=== PATIENT | female | born 1960 | race Caucasian/White ===

== ENCOUNTER 2016-05-04 08:34 | Day surgery (SDC) | payer MEDICARE, OTHER ==
[2016-05-01 15:17] VITALS: BMI 40.2
[~2016-05-04 08:34] MED LIST: LACTATED RINGERS 1,000 ML IV SCH
[2016-05-04 09:16] VITALS: TEMP 98
[2016-05-04] MEDS ORDERED: LIDOCAINE 1% 20 ML VIAL (10MG/ML) FOR IV START INTRADERMA ONE (09:22)
[2016-05-04] MEDS ORDERED: PROPOFOL 10 MG/ML 20 ML VIAL IV ONE (10:00)
[2016-05-04] MEDS ORDERED: LIDOCAINE 1% INJ 10MG/ML (20 ML MDV) ONE (10:00)
[2016-05-04] MEDS ORDERED: GLYCOPYRROLATE 0.2 MG/ML 2 ML VIAL ONE (10:00)
[2016-05-04] MEDS ORDERED: KETAMINE 10 MG/ML 20 ML VIAL ONE (10:00)
--- NOTE | 2016-05-04 10:17 | P.GSHP ---
History of Present Illness H&P Date: 05/04/16 Chief Complaint: GERD, morbid obesity This a 56-year-old female who presents today for EGD. Patient is undergoing workup for sleeve gastrectomy. She has a history of GERD and morbid obesity. Her BMI is 40. Past Medical History Past Medical History: Asthma, Fibromyalgia, GERD/Reflux, Musculoskeletal Disorder, Osteoarthritis (OA), Skin Disorder, Thyroid Disorder Additional Past Medical History / Comment(s): IBS, migraines, respiratory infection - on antibiotics, hiatal hernia, hx gout, rosacea, History of Any Multi-Drug Resistant Organisms: None Reported Past Surgical History: Adenoidectomy, Appendectomy, Bariatric Surgery, Cholecystectomy, Heart Catheterization, Orthopedic Surgery, Tonsillectomy, Tubal Ligation, Uterine Ablation Additional Past Surgical History / Comment(s): tendon/ligament repair in foot, lexie knee arthroscopy, lipoma out of rt. shoulder, lap band/later removed, thyroidectomy, rt hand surgery, Past Anesthesia/Blood Transfusion Reactions: Motion Sickness Past Psychological History: Anxiety, Bipolar, Depression Additional Psychological History / Comment(s): Major depressive disorder, suicide attempts x 4, Smoking Status: Never smoker Past Alcohol Use History: None Reported Past Drug Use History: None Reported - Past Family History Mother Family Medical History: Cancer Additional Family Medical History / Comment(s): Pancreatic Father Family Medical History: Cancer, Deep Vein Thrombosis (DVT), Pulmonary Embolus Additional Family Medical History / Comment(s): Prostate Medications and Allergies Home Medications Medication Instructions Recorded Confirmed Type Lansoprazole [Prevacid] 30 mg PO DAILY 09/25/15 05/04/16 History Levothyroxine Sodium [Synthroid] 25 mcg PO DAILY 09/25/15 05/04/16 History Sertraline [Zoloft] 100 mg PO HS 09/25/15 05/04/16 History carBAMazepine [TEGretol] 200 mg PO HS 09/25/15 05/04/16 History traZODone HCL [Desyrel] 200 mg PO HS 09/25/15 05/04/16 History Baclofen [Lioresal] 5 mg PO BID PRN 10/27/15 05/04/16 History Calcium Tablet 1,000 mg PO QAM 11/28/15 05/04/16 History Multivitamins, Thera [Multivitamin] 2 tab PO DAILY 11/28/15 05/04/16 History Temazepam [Restoril] 30 mg PO HS PRN 11/28/15 05/04/16 History traMADol HCL [Ultram] 50 mg PO Q8HR PRN 11/28/15 05/04/16 History Ibuprofen [Motrin] 800 mg PO Q8HR PRN 02/09/16 05/04/16 History Albuterol Inhaler [Ventolin Hfa 2 puff INHALATION Q6HR PRN 05/01/16 05/04/16 History Inhaler] Doxycycline Monohydrate [Monodox] 100 mg PO Q12HR 05/01/16 05/04/16 History Loratadine [Claritin] 10 mg PO DAILY PRN 05/01/16 05/04/16 History Allergies Allergy/AdvReac Type Severity Reaction Status Date / Time desvenlafaxine succinate Allergy SORES IN Verified 05/04/16 09:09 [From Pristiq] MOUTH cefuroxime axetil AdvReac Nausea & Verified 05/04/16 09:09 [From Ceftin] Vomiting etodolac [From Lodine] AdvReac HEART BURN Verified 05/04/16 09:09 nitrofurantoin AdvReac Nausea & Verified 05/04/16 09:09 macrocrystalline Vomiting [From Macrodantin] Surgical - Exam Vital Signs Temp Pulse Resp BP Pulse Ox 98 F 81 16 117/59 98 05/04/16 09:15 05/04/16 09:15 05/04/16 09:15 05/04/16 09:15 05/04/16 09:15 - General well developed, no distress - Eyes PERRL - ENT normal pinna - Neck no masses, no bruits - Respiratory normal expansion - Cardiovascular Rhythm: regular - Abdomen Abdomen: soft, non tender Assessment and Plan Plan: Morbid obesity We'll perform EGD
--- NOTE | 2016-05-04 10:23 | P.OP ---
Date of Procedure: 05/04/16 Preoperative Diagnosis: GERD Morbid obesity Postoperative Diagnosis: Mild antral gastritis Procedure(s) Performed: EGD Anesthesia: MAC Surgeon: Fredi Vega Pathology: other (Antrum) Condition: stable Disposition: PACU Description of Procedure: The patient's placed on the endoscopy table at the lateral position. The gastric scope some placed oropharynx and passed in the esophagus and into the stomach. The scope was then placed through the pylorus. The first and second portion of the duodenum appeared normal. The scope was then brought back the antrum this. Mildly inflamed. A biopsies performed. Scope was unretroflexed and remainder of the stomach appeared normal. There was no significant hiatal hernia. The GE junction was at 47. The distal esophagus appeared normal. The proximal esophagus. Normal. Scope was withdrawn for patient.
[2016-05-04 11:12] VITALS: BP 126/84; PULSE 84; RESP 20
== END 2016-05-04 11:19 | disposition home or self-care (01) ==
LOC: ORWHC2ENDO 08:34
PROVIDERS: ATTEND Surgery
DX: K29.50 Unspecified chronic gastritis without bleeding (principal); K21.9 Gastro-esophageal reflux disease without esophagitis; E66.01 Morbid (severe) obesity due to excess calories; Z68.41 Body mass index [BMI] 40.0-44.9, adult; F31.30 Bipolar disorder, current episode depressed, mild or moderate severity, unspecified; F41.9 Anxiety disorder, unspecified; Z79.899 Other long term (current) drug therapy; Z88.8 Allergy status to other drugs, medicaments and biological substances; Z88.1 Allergy status to other antibiotic agents; Z91.041 Radiographic dye allergy status
CPT/HCPCS: 88305; 88342; 43239; J2001; J2704; 99153

== ENCOUNTER 2016-06-01 07:40 | Inpatient (IN) | payer MEDICARE, OTHER ==
[~2016-06-01 07:40] MED LIST changes: +CLINDAMYCIN 900 MG in DEXTROSE 5% IN WATER 50 ML IVPB ONE; +DEXAMETHASONE SOD PHOSPHATE 10 MG/ML 1 ML VIAL IV ONE; +GENTAMICIN 340 MG in SODIUM CHLORIDE 0.9% 100 ML IVPB ONE; +HYDROmorphone 1 MG/ML 1 ML SYRINGE IVP PRN; -LACTATED RINGERS 1,000 ML IV SCH; +MIDAZOLAM 2 MG/2 ML VIAL IV PRN; +ONDANSETRON 4 MG/2 ML VIAL IVP ONE; +SCOPOLAMINE 1.5MG/72HR PATCH TRANSDERM ONE
[2016-06-01] MEDS ORDERED: IBUPROFEN IV 400 MG in SODIUM CHLORIDE 0.9% 250 ML IV ONE (12:24)
[2016-06-01] MEDS ORDERED: ACETAMINOPHEN IV (For NPO) 1,000 MG in EMPTY BAG 1 BAG IVPB STA (12:25)
[2016-06-01] MEDS: LACTATED RINGERS 1,000 ML IV SCH (13:01)
[2016-06-01] MEDS ORDERED: LIDOCAINE 1% 20 ML VIAL (10MG/ML) FOR IV START INTRADERMA ONE (13:01)
--- NOTE | 2016-06-01 13:39 | P.GSHP ---
History of Present Illness H&P Date: 06/01/16 Chief Complaint: Morbid obesity This a 56-year-old female who presents today for laparoscopic sleeve gastrectomy. Patient is history of obesity with severe coronary disease. She' s had a previous LAP-BAND procedure. Patient aware the risks of surgery including conversion to open procedure. Injury to the stomach liver or spleen. She is also aware the risk staple line disruption, bleeding or perforation. - Constitutional Constitutional: Reports as per HPI Past Medical History Past Medical History: Asthma, Fibromyalgia, GERD/Reflux, Musculoskeletal Disorder, Osteoarthritis (OA), Skin Disorder, Thyroid Disorder Additional Past Medical History / Comment(s): IBS, MIGRAINES, HIATAL HERNIA, GOUT, ROSACEA, HERNIATED DISCS WITH BACK PAIN - [facility] PROCEDURES, LOW THYROID, COUGH DUE TO SINUS DRAINAGE . History of Any Multi-Drug Resistant Organisms: None Reported Past Surgical History: Adenoidectomy, Appendectomy, Bariatric Surgery, Cholecystectomy, Heart Catheterization, Orthopedic Surgery, Tonsillectomy, Tubal Ligation, Uterine Ablation Additional Past Surgical History / Comment(s): tendon/ligament repair in foot, lexie knee arthroscopy, lipoma out of rt. shoulder, lap band insertion and removed, rt hand surgery,. Past Anesthesia/Blood Transfusion Reactions: Motion Sickness Past Psychological History: Anxiety, Bipolar, Depression Additional Psychological History / Comment(s): Major depressive disorder, suicide attempts x 4, Smoking Status: Never smoker Past Alcohol Use History: None Reported Past Drug Use History: None Reported - Past Family History Mother Family Medical History: Cancer Additional Family Medical History / Comment(s): Pancreatic cancer Father Family Medical History: Cancer, Deep Vein Thrombosis (DVT), Pulmonary Embolus Additional Family Medical History / Comment(s): Prostate cancer Medications and Allergies Home Medications Medication Instructions Recorded Confirmed Type Lansoprazole [Prevacid] 30 mg PO DAILY 09/25/15 06/01/16 History Levothyroxine Sodium [Synthroid] 25 mcg PO [id number] 09/25/15 06/01/16 History Sertraline [Zoloft] 100 mg PO HS 09/25/15 06/01/16 History carBAMazepine [TEGretol] 200 mg PO HS 09/25/15 06/01/16 History traZODone HCL [Desyrel] 200 mg PO HS 09/25/15 06/01/16 History Baclofen [Lioresal] 5 mg PO BID PRN 10/27/15 06/01/16 History Multivitamins, Thera [Multivitamin] 2 tab PO DAILY 11/28/15 06/01/16 History Temazepam [Restoril] 30 mg PO HS PRN 11/28/15 06/01/16 History traMADol HCL [Ultram] 50 mg PO Q8HR PRN 11/28/15 06/01/16 History Ibuprofen [Motrin] 800 mg PO Q8HR PRN 02/09/16 06/01/16 History Albuterol Inhaler [Ventolin Hfa 2 puff INHALATION Q6HR PRN 05/01/16 06/01/16 History Inhaler] Loratadine [Claritin] 10 mg PO DAILY PRN 05/01/16 06/01/16 History Calcium Carbonate [Calcium] 1,500 mg PO DAILY 05/21/16 06/01/16 History Allergies Allergy/AdvReac Type Severity Reaction Status Date / Time desvenlafaxine succinate Allergy SORES IN Verified 06/01/16 12:52 [From Pristiq] MOUTH cefuroxime axetil AdvReac Nausea & Verified 06/01/16 12:52 [From Ceftin] Vomiting etodolac [From Lodine] AdvReac HEART BURN Verified 06/01/16 12:52 nitrofurantoin AdvReac Nausea & Verified 06/01/16 12:52 macrocrystalline Vomiting [From Macrodantin] Surgical - Exam Vital Signs Temp Pulse Resp BP Pulse Ox 97.9 F 85 16 129/93 93 L 06/01/16 12:59 06/01/16 12:59 06/01/16 12:59 06/01/16 12:59 06/01/16 12:59 - General well developed, no distress - Eyes PERRL - ENT normal pinna - Neck no masses - Respiratory normal expansion - Cardiovascular Rhythm: regular - Abdomen Abdomen: soft, non tender Assessment and Plan Plan: Morbid obesity BMI 41. She'll undergo laparoscopic sleeve gastrectomy today.
[2016-06-01] MEDS ORDERED: ePHEDrine 50 MG/ML 1 ML AMP ONE (14:05)
[2016-06-01] MEDS ORDERED: SUCCINYLCHOLINE CHLORIDE 100 MG/5 ML SYR IV ONE (14:05)
[2016-06-01] MEDS ORDERED: IBUPROFEN IV 800 MG/8 ML VIAL IV ONE (14:05)
[2016-06-01] MEDS ORDERED: HEPARIN SODIUM,PORCINE 5,000 UNIT/ML 1 ML VIAL ONE (14:05)
[2016-06-01] MEDS ORDERED: MIDAZOLAM 2 MG/2 ML VIAL ONE (14:05)
[2016-06-01] MEDS ORDERED: PROPOFOL 10 MG/ML 20 ML VIAL IV ONE (14:05)
[2016-06-01] MEDS ORDERED: HYDROmorphone (PF) 1 MG/ML ONE (14:05)
[2016-06-01] MEDS ORDERED: ROCURONIUM BROMIDE 10 MG/ML 10 ML VIAL IV ONE (14:05)
[2016-06-01] MEDS ORDERED: GLYCOPYRROLATE 0.2 MG/ML 2 ML VIAL ONE (14:05)
[2016-06-01] MEDS ORDERED: LIDOCAINE 1% INJ 10MG/ML (20 ML MDV) ONE (14:05)
[2016-06-01] MEDS ORDERED: ONDANSETRON 4 MG/2 ML VIAL ONE (14:05)
[2016-06-01] MEDS ORDERED: NEOSTIGMINE 1 MG/ML 10 ML VIAL ONE (14:05)
[2016-06-01] MEDS ORDERED: ESMOLOL 100 MG/10 ML VIAL ONE (14:05)
[2016-06-01] MEDS ORDERED: BUPIVACAIN-EPI 0.25%-1:200,000 30 ML VIAL SQ ONE (14:43)
[2016-06-01] MEDS ORDERED: HYDROmorphone 1 MG/ML 1 ML SYRINGE IVP PRN (15:33)
[2016-06-01] MEDS ORDERED: NALOXONE 0.4 MG/ML 1 ML VIAL IV PRN (15:33)
--- NOTE | 2016-06-01 15:33 | P.OP ---
Date of Procedure: 06/01/16 Preoperative Diagnosis: Morbid obesity Postoperative Diagnosis: Morbid obesity Procedure(s) Performed: Laparoscopic sleeve gastrectomy Lysis of adhesions Anesthesia: EDISON Surgeon: Fredi Vega Estimated Blood Loss (ml): 15 Pathology: other (Stomach) Condition: stable Disposition: PACU Description of Procedure: The patient was placed on the operating room table in the supine position. She received general anesthesia and then was placed in dorsal lithotomy position. Her abdomen was prepped and draped in sterile fashion. The skin incision sites were anesthetized 1% local Xylocaine. And then the skin was incised with an 11 blade in the left lateral position. Using a blade less trocar under direct visualization the peritoneal cavity was entered. The abdomen was insufflated and then a 5 mm laparoscope was placed into the peritoneal cavity. A 5 mm trocar was placed in the right epigastric, and right lateral position. A 15 mm trocar was placed in the supra-umbilical position and another 5 mm trocar was placed in the left lateral position. The left lateral lobe of the liver was retracted. The stomach was visualized. There were extensive adhesions between the stomach and liver and anterior abdominal wall. These were lysed using sharp dissection. Prostate 15 minutes of operative time used to lyse adhesions. The greater curvature of the stomach was then dissected using the Harmonic scissors. The dissection occurred approximately 5 cm from the pylorus to the level of the left brenda. There was no hiatal hernia seen. At this point a 40- Tamazight bougie dilator was placed the oropharynx and passed into the esophagus and into the stomach by the SHEET TAKER. The sleeve gastrectomy was performed by using the powered echelon stapler with a seam guard buttress material. Sequential firings of the stapler were performed. The gastric remnant was then brought out through the 15 mm trocar site. The dilator was withdrawn. And a orogastric tube was replaced into the stomach. The stomach was insufflated with 200 mL of methylene blue normal saline. There was no evidence of extravasation. The abdomen was irrigated there is no bleeding seen. The Rob -Marek device was used to close the 15 mm trocar with 0 Vicryl. Skin was closed with interrupted 3-0 Monocryl sutures once the trochars withdrawn. Dermabond dressing was applied. Patient was sent to recovery in stable condition.marty
[2016-06-01] MEDS ORDERED: LACTATED RINGERS 1,000 ML IV ONE (16:03)
[2016-06-01] MEDS ORDERED: HYDROmorphone 1 MG/ML 1 ML SYRINGE IVP ONE ×4 (16:22→16:37)
[2016-06-01] MEDS: ALBUTEROL NEBULIZED 2.5 MG/3 ML INHALATION SCH ×2 (16:57→20:29)
[2016-06-01 17:37] VITALS: BMI 38.9
[2016-06-01] MEDS ORDERED: BACLOFEN 10 MG TAB PO PRN (17:48)
[2016-06-01] MEDS ORDERED: ALBUTEROL NEBULIZED 2.5 MG/3 ML INHALATION PRN (17:48)
[2016-06-01] MEDS ORDERED: LORATADINE 10 MG TAB PO PRN (17:48)
[2016-06-01] MEDS ORDERED: traMADol 50 MG TAB PO PRN (17:48)
[2016-06-01] MEDS: KETOROLAC 30 MG/ML 1 ML VIAL IVP SCH ×2 (18:37→23:40)
--- NOTE | 2016-06-01 19:32 | CONS ---
DATE OF CONSULTATION: 06/01/2016 CHIEF COMPLAINT: A 56-year-old white female, status post gastric sleeve for medical management. CONSULT: This is a 56-year-old white female with history of asthma, anxiety, depression, allergic rhinitis, seizure disorder, chronic pain syndrome, possibly hypothyroidism, GERD, chronic lumbar disc disease, status post gastric sleeve. She is having upper gas pressure consistent with surgery. No chest pain. She had a previous lap band. She has no chest pain at this time. PSYCH: She appears flat affect on speaking. PAST MEDICAL HISTORY: Asthma, fibromyalgia, GERD, osteoarthritis, skin disorder, hypothyroidism, irritable bowel syndrome, minor hiatal hernia, rosacea, lumbar degenerative disc disease. SURGERY: Adenoidectomy, appendectomy, bariatric surgery, cholecystectomy, heart catheterization, orthopedic surgery, tonsillectomy, tubal ligation and uterine ablation, ligament repair and bilateral knee arthroscopy, lipoma on the right shoulder, lap band insertion removal, right hand surgery. Has anxiety, bipolar, depression. Suicide attempts x4. SOCIAL HISTORY: No smoking. No alcohol. No illicit drugs. Lives with her of 21 years in [place]. FAMILY HISTORY: Mother with cancer. Father with cancer, DVT, pulmonary embolism. HOME MEDICATIONS: 1. Prevacid 30 daily. 2. Levothyroxine 25 mcg daily. 3. Zoloft 10 mg q.h.s. 4. Tegretol 200 q.h.s. 5. Desyrel 200 q.h.s. 6. Lioresal 5 mg b.i.d. 7. Multivitamin 2 tabs daily. 8. Restoril 30 q.h.s. 9. Tramadol 50 q.8 hours. 10. Motrin 800 q.8 hours. 11. Ventolin HFA 2 puffs q.6 hours p.r.n. 12. Claritin 10 mg daily. 13. Calcium carbonate 1500 mg daily. ALLERGIES: PRISTIQ, LODINE, BACTRIM, CEFUROXIME. Temp 97.9, pulse 85, respirations 16 to 18, blood pressure is 120/90s, O2 93%. Well developed, well nourished white female. PSYCH: Appears flat affects, sleepy, lethargic. NEUROLOGIC: Alert and oriented x3. CARDIOVASCULAR: Regular rate and rhythm. LUNGS: Clear. ABDOMEN: Soft, nontender. ASSESSMENT: 1. Morbid obesity, status post gastric sleeve. 2. Hypothyroidism. 3. Anxiety, depression. 4. Obesity. 5. Fibromyalgia. 6. Migraines. 7. Irritable bowel syndrome. Continue home medications. Monitor her breathing. Reorder her home medicines after she passes her swallow evaluation. Thank you Dr. Vega.
[2016-06-01] MEDS ORDERED: carBAMazepine 200 MG TAB PO SCH (21:00)
[2016-06-01] MEDS ORDERED: SERTRALINE 100 MG TAB PO SCH (21:00)
[2016-06-01] MEDS: 0.9% NACL WITH KCL 20 MEQ/L 1,000 ML IV SCH (22:01)
[2016-06-01] MEDS: ONDANSETRON 4 MG/2 ML VIAL IVP PRN (22:01)
[2016-06-02] MEDS: 0.9% NACL WITH KCL 20 MEQ/L 1,000 ML IV SCH ×2 (03:12→05:32)
[2016-06-02] MEDS: LACTATED RINGERS 1,000 ML IV SCH ×2 (03:56→20:44)
[2016-06-02] MEDS: ONDANSETRON 4 MG/2 ML VIAL IVP PRN ×3 (05:15→23:46)
[2016-06-02] MEDS ORDERED: PROCHLORPERAZINE 10 MG TAB PO PRN (05:30)
[2016-06-02] MEDS: KETOROLAC 30 MG/ML 1 ML VIAL IVP SCH ×4 (05:40→23:14)
[2016-06-02] MEDS: METOCLOPRAMIDE 5 MG/ML 2 ML VIAL IVP PRN ×2 (07:08→19:15)
[2016-06-02] MEDS ORDERED: LEVOTHYROXINE 25 MCG TAB PO SCH (07:30)
[2016-06-02] MEDS ORDERED: PANTOPRAZOLE 40 MG TABLET PO SCH (07:30)
[2016-06-02] MEDS: ALBUTEROL NEBULIZED 2.5 MG/3 ML INHALATION SCH ×3 (07:37→16:00)
[2016-06-02 07:50] LABS: Basophils # (A) 0.1 k/uL (0-0.2); Basophils % (A) 0 %; CH 27.7; CHCM 31.1; Eosinophils % (A) 0 %; HCT 44.1 % (34.0-46.0); HGB 13.8 gm/dL (11.4-16.0); Hypochromasia Slight; Luc # (Auto) 0.11; Luc % (Auto) 1; Lymphocytes # (A) 1.1 k/uL (1.0-4.8); Lymphocytes % (A) 7 %; MCHC 31.3 g/dL (31.0-37.0); MCV 89.5 fL (80.0-100.0); Mean Platelet Volume 6.7; Monocytes # (A) 0.7 k/uL (0-1.0); Monocytes % (A) 5 %; Neutrophils # (A) 13.8 k/uL (1.3-7.7); Neutrophils % (A) 87 %; RBC 4.93 m/uL (3.80-5.40); RDW 13.6 % (11.5-15.5); WBC 15.8 k/uL (3.8-10.6); WBC (Perox) 16.37
[2016-06-02 08:09] LABS: Anion Gap 17 mmol/L; Blood Urea Nitrogen 6 mg/dL (7-17); Calcium 8.8 mg/dL (8.4-10.2); Carbon Dioxide 15 mmol/L (22-30); Chloride 107 mmol/L (98-107); Magnesium 1.7 mg/dL (1.6-2.3); Non-African American GFR(MDRD) >60 (>60 ml/min/1.73 sqM); Phosphorous 2.3 mg/dL (2.5-4.5); Potassium 4.9 mmol/L (3.5-5.1); Sodium 139 mmol/L (137-145)
[2016-06-02] MEDS ORDERED: MULTIVITAMINS, THERA 1 EACH TAB PO SCH (09:00)
[2016-06-02] MEDS ORDERED: CALCIUM CARBONATE 500 MG CHEWABLE PO SCH (09:00)
--- NOTE | 2016-06-02 11:20 | FL ---
EXAMINATION TYPE: FL UGI DATE OF EXAM: 06/02/2016 11:06 AM COMPARISON: NONE HISTORY: Post gastric sleeve TECHNIQUE: A single contrast UGI study is performed. Contrast: Omnipaque 350. FINDINGS: The patient was nauseous and vomiting prior to this examination. Following a period of approximately 2 hours without vomiting patient was brought to the fluoroscopy suite. The patient was given single c ontrast, swallowing was observed. Contrast extends to the gastroesophageal junction. Patient motion s ickness and vomiting. Contrast does not pass beyond the gastric sleeve. Surgical sutures are evident. No significant free fluid is identified within the abdomen during this exam. No extravasation of con trast is evident. Additional overhead radiographs were obtained. IMPRESSION: 1. Obstruction at the level of the proximal gastric sleeve. No contrast passes beyond this location t hroughout the time of the examination. Examination is somewhat limited due to patient's physical cond ition at the time of the study.
[2016-06-02] MEDS ORDERED: LORazepam 2 MG/ML SYRINGE IV PRN ×2 (12:31)
--- NOTE | 2016-06-02 12:36 | P.PN ---
Subjective Principal diagnosis: Status post gastric sleeve resection The patient's postoperative day 1 from a gastric sleeve resection. She had some persistent nausea and vomiting through the night. Had some small amounts of bloody emesis. He underwent the upper GI this morning which showed complete obstruction proximally. Objective - Vital Signs Vital signs: Vital Signs Temp 97.6 F 06/02/16 07:00 Pulse 76 06/02/16 07:00 Resp 17 06/02/16 07:00 BP 126/63 06/02/16 07:00 Pulse Ox 99 06/02/16 07:00 Intake & Output 06/01/16 06/02/16 06/02/16 18:59 06:59 18:59 Intake Total 1364.5 1350 Output Total 15 Balance 1349.5 1350 Weight 96.615 kg Intake: IV 1364.5 1350 0.9% NaCl with KCl 20 Meq 1350 /l 1,000 ml @ 150 mls/hr IV .[id number] [facility] Rx#: [id number] Output: Estimated Blood Loss 15 Other: Voiding Method Toilet Toilet # Voids 1 3 - Constitutional General appearance: Present: cooperative, no acute distress - Respiratory Respiratory: bilateral: CTA - Gastrointestinal General gastrointestinal: Present: decreased bowel sounds, soft Localized gastrointestinal: surgical scar: diffuse (Incisions have some ecchymosis.) - Labs CBC & Chem 7: 06/02/16 07:04 06/02/16 07:04 Labs: Abnormal Lab Results - Last 24 Hours (Table) 06/02/16 06/02/16 Range/Units 07:04 07:04 WBC 15.8 H (3.8-10.6) k/uL Neutrophils # 13.8 H (1.3-7.7) k/uL Carbon Dioxide 15 L (22-30) mmol/L BUN 6 L (7-17) mg/dL Phosphorus 2.3 L (2.5-4.5) mg/dL Assessment and Plan (1) Gastric outflow obstruction Status: Acute (2) GERD (gastroesophageal reflux disease) Status: Acute Plan: The patient has a gastric obstruction likely due to edema and/or hematoma along her staple line. We'll start IV fluids. Make her absolute NPO including medications. Continue IV proton pump inhibitor. Switch over to IV medications. This will likely resolve in the next 48-72 hours. This was explained to her. Questions were encouraged and answered.
[2016-06-02] MEDS: PANTOPRAZOLE 40 MG/10 ML VIAL IV SCH (14:04)
[2016-06-02 14:09] VITALS: RESP 16
[2016-06-02] MEDS: ENOXAPARIN 40 MG/0.4 ML SYRINGE SQ SCH ×2 (14:12→20:41)
[2016-06-02] MEDS: LEVOTHYROXINE IVP 100 MCG/5 ML VIAL IV SCH (14:13)
[2016-06-02] MEDS: DEXTROSE 5%-0.45% NACL 1,000 ML IV SCH ×2 (14:13→20:19)
--- NOTE | 2016-06-02 19:19 | PN ---
SUBJECTIVE: 56-year-old white female with morbid obesity. She is having severe nausea and vomiting last night. She had thrown up 4 times, a bile-type fluid in the past 24 hours. She is going to stay for the weekend. Tegretol due to her vomiting will be switched from p.o. over to IV, pharmacy will switch this. Discussed this with the nurse. White count is 15.8, hemoglobin 13.8, BUN 6, creatinine 0.56, phosphorus 2.3. PLAN: Continue updrafts. Lovenox and Synthroid will be given IVP. GERD prophylaxis will be given IV. Ativan will be given for anxiety, 1 to 2 mg to control her seizures also at this time, until she can resume her oral antiseizure medicines. Follow up in next 24 to 48 hours.
[2016-06-02] MEDS ORDERED: SCOPOLAMINE 1.5MG/72HR PATCH TRANSDERM SCH (20:00)
[2016-06-03] MEDS: ALBUTEROL NEBULIZED 2.5 MG/3 ML INHALATION SCH ×5 (00:01→19:26)
[2016-06-03] MEDS: METOCLOPRAMIDE 5 MG/ML 2 ML VIAL IVP PRN ×4 (00:35→18:25)
[2016-06-03] MEDS: ONDANSETRON 4 MG/2 ML VIAL IVP PRN (04:08)
[2016-06-03] MEDS: KETOROLAC 30 MG/ML 1 ML VIAL IVP SCH ×2 (05:34→11:15)
[2016-06-03] MEDS: LEVOTHYROXINE IVP 100 MCG/5 ML VIAL IV SCH (09:11)
[2016-06-03] MEDS: ENOXAPARIN 40 MG/0.4 ML SYRINGE SQ SCH ×2 (09:12→20:16)
[2016-06-03] MEDS: PANTOPRAZOLE 40 MG/10 ML VIAL IV SCH (09:12)
[2016-06-03 10:00] LABS: CH 28.1; CHCM 32.5; HCT 42.4 % (34.0-46.0); HDW 2.83; HGB 13.4 gm/dL (11.4-16.0); MCH 27.5 pg (25.0-35.0); MCHC 31.6 g/dL (31.0-37.0); MCV 87.2 fL (80.0-100.0); Mean Platelet Volume 7.8; RBC 4.87 m/uL (3.80-5.40); RDW 13.8 % (11.5-15.5); WBC 11.1 k/uL (3.8-10.6)
[2016-06-03 10:29] LABS: Anion Gap 14 mmol/L; Blood Urea Nitrogen 3 mg/dL (7-17); Calcium 9.1 mg/dL (8.4-10.2); Carbon Dioxide 19 mmol/L (22-30); Chloride 109 mmol/L (98-107); Glucose 123 mg/dL (74-99); Non-African American GFR(MDRD) >60 (>60 ml/min/1.73 sqM); Potassium 3.9 mmol/L (3.5-5.1); Sodium 142 mmol/L (137-145)
--- NOTE | 2016-06-03 10:59 | P.PN ---
Subjective Principal diagnosis: Status post gastric sleeve resection The patient has stopped having dry heaves. She is having heartburn however. This feeling a little better today. Objective - Vital Signs Vital signs: Vital Signs Temp 97.9 F 06/03/16 07:00 Pulse 57 L 06/03/16 07:00 Resp 16 06/03/16 07:00 BP 147/71 06/03/16 07:00 Pulse Ox 96 06/03/16 07:00 Intake & Output 06/02/16 06/03/16 06/03/16 18:59 06:59 18:59 Other: Voiding Method Toilet Toilet # Voids 1 1 - Constitutional General appearance: Present: cooperative, no acute distress - Gastrointestinal General gastrointestinal: Present: soft Localized gastrointestinal: surgical scar: diffuse (Incisions healing with some ecchymosis) - Labs CBC & Chem 7: 06/03/16 09:44 06/03/16 09:44 Labs: Abnormal Lab Results - Last 24 Hours (Table) 06/03/16 06/03/16 Range/Units 09:44 09:44 WBC 11.1 H (3.8-10.6) k/uL Chloride 109 H (98-107) mmol/L Carbon Dioxide 19 L (22-30) mmol/L BUN 3 L (7-17) mg/dL Glucose 123 H (74-99) mg/dL Assessment and Plan (1) Gastric outflow obstruction Status: Acute (2) GERD (gastroesophageal reflux disease) Status: Acute Plan: Continue nothing by mouth. Continue hydration. May try to reinitiate ice cubes and sips of liquid stool tomorrow.
[2016-06-03] MEDS: DEXTROSE 5%-0.45% NACL 1,000 ML IV SCH ×3 (11:19→20:16)
--- NOTE | 2016-06-03 14:26 | FL ---
EXAMINATION TYPE: FL UGI w esophagus DATE OF EXAM: 06/03/2016 8:39 AM COMPARISON: 06/02/2016 HISTORY: Post gastric sleeve 06/01/2016 TECHNIQUE: A single contrast UGI study is performed. FINDINGS: Contrast passes through the proximal gastric sleeve with moderate hesitancy. No extravasation is evid ent. Through the gastric sleeve there is prompt drainage into the duodenum. No obstruction is evident . IMPRESSION: Moderate hesitancy of contrast passing through the gastric sleeve. Previous obstruction i s resolved. No extravasation is evident.
--- NOTE | 2016-06-03 19:02 | PN ---
DATE OF SERVICE: 06/03/2016. SUBJECTIVE: This is a 56-year-old white female who is status post gastric sleeve, is having no chest pain or shortness of breath, some mild diffuse abdominal pain. Remains on Synthroid through the IV. Updraft treatments are still being given, Protonix IV, scopolamine patch is being given. Patient continues to have improvement in nausea, vomiting, she is having no chest pain or shortness of breath. CARDIOVASCULAR: S1 and S2 LUNGS: Scattered wheeze. HEMATOLOGIC: Negative Homans. PLAN: Continue with current treatment. Possible discharge home in the morning.
[2016-06-03] MEDS: LACTATED RINGERS 1,000 ML IV SCH (20:14)
[2016-06-04] MEDS: METOCLOPRAMIDE 5 MG/ML 2 ML VIAL IVP PRN ×2 (00:05→05:05)
[2016-06-04] MEDS: ALBUTEROL NEBULIZED 2.5 MG/3 ML INHALATION SCH ×4 (07:22→21:42)
[2016-06-04] MEDS ORDERED: MAGNESIUM HYDROXIDE 2,400 MG/10 ML CUP PO ONE (07:27)
[2016-06-04] MEDS: PANTOPRAZOLE 40 MG/10 ML VIAL IV SCH (08:20)
[2016-06-04] MEDS: LEVOTHYROXINE IVP 100 MCG/5 ML VIAL IV SCH (08:20)
[2016-06-04] MEDS: ONDANSETRON 4 MG/2 ML VIAL IVP PRN (08:20)
[2016-06-04] MEDS: ENOXAPARIN 40 MG/0.4 ML SYRINGE SQ SCH ×2 (08:21→22:21)
[2016-06-04] MEDS: SUCRALFATE 1 GM TAB PO SCH ×3 (12:59→22:03)
--- NOTE | 2016-06-04 15:15 | P.PN ---
Subjective 56-year-old female being seen by the attending this morning. Patient is being followed for medical management at the request of the attending. Patient is postop upper Aidan B sleeve gastrectomy for morbid obesity Objective - Vital Signs Vital signs: Vital Signs Temp 97.4 F L 06/04/16 11:59 Pulse 80 06/04/16 15:06 Resp 16 06/04/16 11:59 BP 133/75 06/04/16 11:59 Pulse Ox 98 06/04/16 11:59 Intake & Output 06/03/16 06/04/16 06/04/16 18:59 06:59 18:59 Intake Total 590 Balance 590 Intake: Oral 590 Other: Voiding Method Toilet # Voids 2 1 - Exam Physical exam 56-year-old female sitting up and appears in no acute distress pleasant cooperative oriented 3 Lungs essentially clear adequate air movement Heart S1-S2 audible regular Abdomen obese soft surgical sites no redness noted Extremities no edema - Labs CBC & Chem 7: 06/03/16 09:44 06/03/16 09:44 Assessment and Plan Plan: Impression Morbid obesity BMI 39 Status post
--- NOTE | 2016-06-04 15:51 | P.PN ---
Subjective Principal diagnosis: Status post gastric sleeve resection Patient is a 56-year-old white female with medical history significant for morbid obesity status post laparoscopic sleeve gastrectomy would lysis of adhesions, postop day #3. Patient is evaluated on surgical unit where she is complaining of intermittent episodes of nausea without vomiting and slight heartburn. Denies chills, shortness of breath, or chest pain. Incisional pain controlled. Patient is passing flatus with bowel movement. Patient has been up ambulating. Patient is tolerating ice chips. Urine output adequate. T-max the last 24 hours 99.5. Objective - Vital Signs Vital signs: Vital Signs Temp 99.5 F 06/04/16 15:37 Pulse 88 06/04/16 15:37 Resp 16 06/04/16 15:37 BP 127/86 06/04/16 15:37 Pulse Ox 98 06/04/16 15:37 Intake & Output 06/03/16 06/04/16 06/04/16 18:59 06:59 18:59 Intake Total 590 1000 Balance 590 1000 Intake: Intake, IV Titration 1000 Amount Dextrose 5%-0.45% NaCl 1, 1000 000 ml @ 100 mls/hr IV . Q10H [facility] Rx#:[id number] Oral 590 Other: Voiding Method Toilet # Voids 2 1 - Exam GENERAL: Pt awake and alert, well-appearing, well-nourished, and in no acute distress. LUNGS: Breath sounds clear to auscultation bilaterally. No wheezes, rales, or rhonchi. HEART: Heart S1, S2, no S3 or S4. Regular rate and rhythm. No murmurs, rubs or gallops. ABDOMEN: Soft, mild incisional tenderness, nondistended, normoactive bowel sounds. No guarding. Laparoscopic surgical incisions dry and intact, no drainage or erythema. NEUROLOGICAL: Pt oriented x 3. - Labs CBC & Chem 7: 06/03/16 09:44 06/03/16 09:44 Assessment and Plan Plan: Impression: 1. Morbid obesity status post laparoscopic sleeve gastrectomy with lysis of adhesions on 06/01/2016. 2. GERD. Plan: We'll start patient on a bariatric clear liquid diet. Add Carafate to medication regimen. Continue IV hydration. Continue supportive treatment and pain management. Continue to follow with medical team. Repeat CBC, BMP, magnesium in a.m. The above impression and plan have been discussed and directed by Dr. Vega. Kevin VANESSA acting as scribe for Dr. Vega.
[2016-06-04 17:54] LABS: Glucose,Whole Blood 86 mg/dL (75-99)
[2016-06-04] MEDS ORDERED: traZODone HCL 100 MG TAB PO SCH (21:00)
[2016-06-04] MEDS ORDERED: SERTRALINE 100 MG TAB PO SCH (21:00)
[2016-06-04] MEDS ORDERED: carBAMazepine 200 MG TAB PO SCH (21:00)
[2016-06-05] MEDS: DEXTROSE 5%-0.45% NACL 1,000 ML IV SCH ×2 (02:38→02:46)
[2016-06-05] MEDS ORDERED: LEVOTHYROXINE 25 MCG TAB PO SCH (06:30)
[2016-06-05] MEDS: LACTATED RINGERS 1,000 ML IV SCH (06:33)
[2016-06-05] MEDS: ALBUTEROL NEBULIZED 2.5 MG/3 ML INHALATION SCH (06:58)
[2016-06-05 07:53] LABS: Basophils # (A) 0.1 k/uL (0-0.2); Basophils % (A) 1 %; CH 28.3; CHCM 32.6; Eosinophils # (A) 0.4 k/uL (0-0.7); Eosinophils % (A) 4 %; HCT 42.2 % (34.0-46.0); HDW 2.93; HGB 13.3 gm/dL (11.4-16.0); Luc # (Auto) 0.11; Luc % (Auto) 1; Lymphocytes # (A) 1.5 k/uL (1.0-4.8); Lymphocytes % (A) 16 %; MCH 27.5 pg (25.0-35.0); MCHC 31.5 g/dL (31.0-37.0); MCV 87.5 fL (80.0-100.0); Mean Platelet Volume 7.5; Monocytes # (A) 0.7 k/uL (0-1.0); Monocytes % (A) 7 %; Neutrophils # (A) 6.7 k/uL (1.3-7.7); Neutrophils % (A) 71 %; RBC 4.83 m/uL (3.80-5.40); RDW 13.8 % (11.5-15.5); WBC 9.4 k/uL (3.8-10.6)
[2016-06-05 08:10] LABS: Anion Gap 15 mmol/L; Blood Urea Nitrogen 5 mg/dL (7-17); Calcium 9.2 mg/dL (8.4-10.2); Carbon Dioxide 21 mmol/L (22-30); Chloride 106 mmol/L (98-107); Glucose 93 mg/dL (74-99); Magnesium 1.8 mg/dL (1.6-2.3); Non-African American GFR(MDRD) >60 (>60 ml/min/1.73 sqM); Phosphorous 3.4 mg/dL (2.5-4.5); Potassium 3.3 mmol/L (3.5-5.1); Sodium 142 mmol/L (137-145)
[2016-06-05] MEDS ORDERED: Potassium Replacement Protocol 1 EACH MISC MISCELLANE PRN (09:31)
[2016-06-05] MEDS ORDERED: Magnesium Replacement Protocol 1 EACH MISC MISCELLANE PRN (09:32)
[2016-06-05] MEDS ORDERED: MAGNESIUM SULFATE-D5W PMX 1 GM in DEXTROSE/WATER 1 100ML.BAG IVPB SCH (09:45)
[2016-06-05 09:54] VITALS: BP 120/83; PULSE 78; TEMP 98.6
[2016-06-05] MEDS ORDERED: POTASSIUM CHLORIDE ORAL LIQUID 40 MEQ/30 ML CUP NG-TUBE SCH (10:00)
--- NOTE | 2016-06-05 12:55 | PN ---
Patient is doing better today. She is breathing good. She is back to her home medications for her Zoloft, Desyrel and her Tegretol and Ventolin inhaler. She feels better at this time. She probably be able to be discharged today. Temperature 99.2, pulse is in the low 100s. Blood pressure 113/72, O2 sat 93% on room air. CARDIOVASCULAR: S1, S2. LUNGS: Clear. GI: Soft. ASSESSMENT: 1. Status post gastric sleeve. 2. History of asthma. 3. History of bipolar. 4. History of seizures. Continue current medicines from home. She will be discharged home. She is stable at this time.
--- NOTE | 2016-06-05 13:17 | P.DS ---
Providers Date of admission: 06/01/16 10:59 Expected date of discharge: 06/05/16 Attending physician: Fredi Vega Consults: 06/01/16 15:33 Consult Physician Routine Consulting Provider: Niraj Whitfield Consult Reason/Comments: Medical management Do you want consulting provider notified?: Yes Primary care physician: Tiarra Colin MD Hospital Course: Patient is a 56-year-old white female with medical history significant for morbid obesity who underwent elective laparoscopic sleeve gastrectomy with lysis of adhesions on 06/01/2016. Patient tolerated procedure well. Upper GI series on 06/02/2016 with obstruction at the level of the proximal gastric sleeve. Patient was kept nothing by mouth overnight with repeat upper GI/ barium swallow on 06/03/2016 with no evidence of obstruction or extravasation. Patient did experience moderate nausea with vomiting postoperatively which had resolved on the day of discharge. Patient was able to swallow liquids with no evidence of dysphagia. Incisional pain was controlled. Patient was urinating without difficulty. Passing flatus without bowel movement. Patient was felt stable for discharge to home with follow-up in the outpatient setting. Discharge diagnoses: 1. Morbid obesity status post laparoscopic sleeve gastrectomy with lysis of adhesions on 06/01/2016. 2. GERD. The above impression and plan have been discussed and directed by Dr. Vega. Kevin VANESSA acting as scribe for Dr. Vega. Pertinent Studies: Upper GI series; GI/barium swallow x-ray; Procedures: Laparoscopic sleeve gastrectomy with lysis of adhesions Patient Condition at Discharge: Good Plan - Discharge Summary New Discharge Prescriptions: HYDROcodone/APAP 7.5-325MG [[place] 7.5-325] 1 each PO Q4H PRN #60 tab PRN Reason: Pain Omeprazole [PriLOSEC] 40 mg PO DAILY #30 capsule. Ondansetron Odt [Zofran Odt] 8 mg PO Q8HR #20 tab Sucralfate [Carafate] 1 gm PO ACHS #90 tablet Discharge Medication List Levothyroxine Sodium [Synthroid] 25 mcg PO [id number]-[id number] 09/25/15 [History] Sertraline [Zoloft] 100 mg PO HS 09/25/15 [History] carBAMazepine [TEGretol] 200 mg PO HS 09/25/15 [History] traZODone HCL [Desyrel] 200 mg PO HS 09/25/15 [History] Baclofen [Lioresal] 5 mg PO BID PRN 10/27/15 [History] Multivitamins, Thera [Multivitamin] 2 tab PO DAILY 11/28/15 [History] Temazepam [Restoril] 30 mg PO HS PRN 11/28/15 [History] traMADol HCL [Ultram] 50 mg PO Q8HR PRN 11/28/15 [History] Albuterol Inhaler [Ventolin Hfa Inhaler] 2 puff INHALATION RT-Q6H PRN 05/01/16 [ History] Loratadine [Claritin] 10 mg PO DAILY PRN 05/01/16 [History] Calcium Carbonate [Calcium] 1,500 mg PO DAILY 05/21/16 [History] HYDROcodone/APAP 7.5-325MG [[place] 7.5-325] 1 each PO Q4H PRN #60 tab 06/01/16 [ Rx] Omeprazole [PriLOSEC] 40 mg PO DAILY #30 capsule. 06/05/16 [Rx] Ondansetron Odt [Zofran Odt] 8 mg PO Q8HR #20 tab 06/05/16 [Rx] Sucralfate [Carafate] 1 gm PO ACHS #90 tablet 06/05/16 [Rx] Follow up Appointment(s)/Referral(s): Tiarra Colin MD [Primary Care Provider] - 06/11/16 1:45 pm [facility] [NON-STAFF] - 06/18/16 1:00 pm Patient Instructions/Handouts: Skin Adhesive Care (DC), Laparoscopic Sleeve Gastrectomy (DC) Activity/Diet/Wound Care/Special Instructions: No heavy lifting, pushing, or pulling items greater than 10 pounds. Bariatric diet as previously directed Shower daily, no soaking in bath tubs, pools, or hot tubs. No driving while taking pain medication. Notify surgeon with any signs or symptoms of infection, increased pain, or not tolerating diet. Discharge Disposition: HOME SELF-CARE
== END 2016-06-05 11:07 | disposition home or self-care (01) | DRG 620 ==
LOC: 2ORWHC 10:59 → 3SUR 15:59
PROVIDERS: ADMIT Surgery; ATTEND Surgery
PROC: 0FN04ZZ Release Liver, Percutaneous Endoscopic Approach (ICD-10-PCS; principal; 2016-06-01 12:00)
PROC: 0DB64Z3 Excision of Stomach, Percutaneous Endoscopic Approach, Vertical (ICD-10-PCS; principal; 2016-06-01 12:00)
PROC: 0DN64ZZ Release Stomach, Percutaneous Endoscopic Approach (ICD-10-PCS; principal; 2016-06-01 12:00)
DX: E66.01 Morbid (severe) obesity due to excess calories (principal); K92.0 Hematemesis; K31.1 Adult hypertrophic pyloric stenosis; F32.9 Major depressive disorder, single episode, unspecified; E03.9 Hypothyroidism, unspecified; F41.9 Anxiety disorder, unspecified; G40.909 Epilepsy, unspecified, not intractable, without status epilepticus; G43.909 Migraine, unspecified, not intractable, without status migrainosus; G89.4 Chronic pain syndrome; J45.909 Unspecified asthma, uncomplicated; K21.9 Gastro-esophageal reflux disease without esophagitis; K58.9 Irritable bowel syndrome, unspecified; M10.9 Gout, unspecified; M79.7 Fibromyalgia; Z68.41 Body mass index [BMI] 40.0-44.9, adult; Z79.899 Other long term (current) drug therapy; Z88.1 Allergy status to other antibiotic agents; Z88.3 Allergy status to other anti-infective agents; Z88.2 Allergy status to sulfonamides; K66.0 Peritoneal adhesions (postprocedural) (postinfection)
CPT/HCPCS: 74240; 80048; 80051; 82310; 82565; 83735; 84100; 84520; 85025; 85027; 88307; 94640; 94760

== ENCOUNTER → 2016-06-18 | Outpatient (CLI) | payer MEDICARE, OTHER ==
[2016-06-18 13:14] VITALS: BP 126/74; PULSE 90; RESP 14; TEMP 97.7; BMI 37.5
--- NOTE | 2016-06-18 14:11 | P.HPBAR ---
Bariatric H&P - History & Physicial H&P Date: 06/18/16 History & Physicial: Visit/CC: sleeve f/u (06/01/16) Patient initial contact: Initial weight: 91.762 kg Initial weight in pounds: 202.30 Height: 5 ft 2 in Initial BMI: 37.0 Last weight: Current weight: 93.259 kg Current weight in pounds: 205.60 Current BMI: 37.5 [place] body weight (based on NIH guidelines): 49.895 kg Excess body weight loss: The patient is a 56 year-old F who presents for Bariatric Assessment. The patient status post sleeve gastrectomy. She had trouble dehydration last week. She received IV fluids in the emergency room at [facility]. Patient states her potassium was 3.2. Patient states he feels better today she is still able to eat and drink slowly. Review of Systems Constitutional: Reports as per HPI Past Medical History Past Medical History: Asthma, Fibromyalgia, GERD/Reflux, Musculoskeletal Disorder, Osteoarthritis (OA), Skin Disorder, Thyroid Disorder Additional Past Medical History / Comment(s): IBS, MIGRAINES, HIATAL HERNIA, GOUT, ROSACEA, HERNIATED DISCS WITH BACK PAIN - [facility] PROCEDURES, LOW THYROID, COUGH DUE TO SINUS DRAINAGE . History of Any Multi-Drug Resistant Organisms: None Reported Past Surgical History: Adenoidectomy, Appendectomy, Bariatric Surgery, Cholecystectomy, Heart Catheterization, Orthopedic Surgery, Tonsillectomy, Tubal Ligation, Uterine Ablation Additional Past Surgical History / Comment(s): tendon/ligament repair in foot, lexie knee arthroscopy, lipoma out of rt. shoulder, lap band insertion and removed, rt hand surgery,. Past Anesthesia/Blood Transfusion Reactions: Motion Sickness Past Psychological History: Anxiety, Bipolar, Depression Additional Psychological History / Comment(s): Major depressive disorder, suicide attempts x 4, Smoking Status: Never smoker Past Alcohol Use History: None Reported Past Drug Use History: None Reported - Past Family History Mother Family Medical History: Cancer Additional Family Medical History / Comment(s): Pancreatic cancer Father Family Medical History: Cancer, Deep Vein Thrombosis (DVT), Pulmonary Embolus Additional Family Medical History / Comment(s): Prostate cancer Surgical - Exam Vital Signs Temp Pulse Resp BP 97.7 F 90 14 126/74 06/18/16 13:03 06/18/16 13:03 06/18/16 13:03 06/18/16 13:03 - General well developed, no distress - Eyes PERRL - ENT normal pinna - Neck no masses - Respiratory normal expansion - Cardiovascular Rhythm: regular - Abdomen Abdomen: soft, non tender Bariatric Assessment & Plan Plan: Status post sleeve yesterday. Patient's dehydration has improved. She'll follow-up in one week for recheck. Bariatric Checklist Checklist: Plan: Checklist: EGD: 1. Hiatal hernia: 2. H. Pylori: HgbA1c: Vitamin D: Smoking: Never smoker Primary care physician referral: Tiarra Dodge) Psychiatry clearance: Cardiology clearance: Sleep study: Diet journal: VTE risk score: VTE risk level: Rehab needs at discharge:
[2016-06-18 14:52] LABS: ALT 35 U/L (9-52); AST 32 U/L (14-36); Alkaline Phosphatase 82 U/L (38-126); Anion Gap 11 mmol/L; Blood Urea Nitrogen 10 mg/dL (7-17); Calcium 9.2 mg/dL (8.4-10.2); Carbon Dioxide 27 mmol/L (22-30); Chloride 103 mmol/L (98-107); Glucose 107 mg/dL (74-99); Non-African American GFR(MDRD) >60 (>60 ml/min/1.73 sqM); Potassium 4.5 mmol/L (3.5-5.1); Sodium 141 mmol/L (137-145); Total Bilirubin 0.5 mg/dL (0.2-1.3); Total Protein 6.6 g/dL (6.3-8.2)
== END | disposition home or self-care (01) ==
LOC: BARWHC3 12:48
PROVIDERS: ATTEND Surgery
DX: Z48.815 Encounter for surgical aftercare following surgery on the digestive system (principal); Z71.3 Dietary counseling and surveillance; Z98.84 Bariatric surgery status; E86.0 Dehydration; Z68.37 Body mass index [BMI] 37.0-37.9, adult
CPT/HCPCS: 80053; 97803; G0463; 99211

== ENCOUNTER → 2016-06-25 | Outpatient (CLI) | payer MEDICARE, OTHER ==
[~2016-06-25] MED LIST changes: -CLINDAMYCIN 900 MG in DEXTROSE 5% IN WATER 50 ML IVPB ONE; -DEXAMETHASONE SOD PHOSPHATE 10 MG/ML 1 ML VIAL IV ONE; -GENTAMICIN 340 MG in SODIUM CHLORIDE 0.9% 100 ML IVPB ONE; -HYDROmorphone 1 MG/ML 1 ML SYRINGE IVP PRN; -MIDAZOLAM 2 MG/2 ML VIAL IV PRN; -ONDANSETRON 4 MG/2 ML VIAL IVP ONE; -SCOPOLAMINE 1.5MG/72HR PATCH TRANSDERM ONE; +SODIUM CHLORIDE 0.9% 250 ML in EMPTY BAG 1 BAG IV PRN; +SODIUM CHLORIDE 0.9% 500 ML in EMPTY BAG 1 BAG IV PRN
[2016-06-25 14:45] VITALS: RESP 16; BMI 36.8
[2016-06-25] MEDS: SODIUM CHLORIDE 0.9% 1,000 ML IV SCH ×2 (15:05→16:12)
--- NOTE | 2016-06-25 15:05 | P.HPBAR ---
Bariatric H&P - History & Physicial H&P Date: 06/25/16 History & Physicial: Visit/CC: sleeve follow-up Patient initial contact: Initial weight: 91.762 kg Initial weight in pounds: 202.30 Height: 5 ft 2 in Initial BMI: 37.0 Last weight: Current weight: 91.2 kg Current weight in pounds: 201.00 Current BMI: 36.8 [place] body weight (based on NIH guidelines): 49.895 kg Excess body weight loss: 1.4% The patient is a 56 year-old F who presents for Bariatric Assessment. Patient states that she has had poor oral intake. She feels tired today. Past Medical History Past Medical History: Asthma, Fibromyalgia, GERD/Reflux, Musculoskeletal Disorder, Osteoarthritis (OA), Skin Disorder, Thyroid Disorder Additional Past Medical History / Comment(s): IBS, MIGRAINES, HIATAL HERNIA, GOUT, ROSACEA, HERNIATED DISCS WITH BACK PAIN - [facility] PROCEDURES, LOW THYROID, COUGH DUE TO SINUS DRAINAGE . History of Any Multi-Drug Resistant Organisms: None Reported Past Surgical History: Adenoidectomy, Appendectomy, Bariatric Surgery, Cholecystectomy, Heart Catheterization, Orthopedic Surgery, Tonsillectomy, Tubal Ligation, Uterine Ablation Additional Past Surgical History / Comment(s): tendon/ligament repair in foot, lexie knee arthroscopy, lipoma out of rt. shoulder, lap band insertion and removed, rt hand surgery,. Past Anesthesia/Blood Transfusion Reactions: Motion Sickness Past Psychological History: Anxiety, Bipolar, Depression Additional Psychological History / Comment(s): Major depressive disorder, suicide attempts x 4, Smoking Status: Never smoker Past Alcohol Use History: None Reported Past Drug Use History: None Reported - Past Family History Mother Family Medical History: Cancer Additional Family Medical History / Comment(s): Pancreatic cancer Father Family Medical History: Cancer, Deep Vein Thrombosis (DVT), Pulmonary Embolus Additional Family Medical History / Comment(s): Prostate cancer Surgical - Exam Vital Signs Temp Pulse Resp BP 97.6 F 90 16 135/82 06/25/16 14:43 06/25/16 14:43 06/25/16 14:43 06/25/16 14:43 - General well nourished, no distress - Eyes PERRL - ENT normal pinna, normal nares - Neck no masses - Cardiovascular Rhythm: regular - Abdomen Abdomen: soft, non tender Bariatric Assessment & Plan Plan: The patient will have her labs checked and have 2 L of normal saline given for possible dehydration. The patient has had limited oral intake yesterday. After hydration she'll go home and possibly follow-up tomorrow. Bariatric Checklist Checklist: Plan: Checklist: EGD: 1. Hiatal hernia: 2. H. Pylori: HgbA1c: Vitamin D: Smoking: Never smoker Primary care physician referral: Tiarra PhillipsRod) Psychiatry clearance: Cardiology clearance: Sleep study: Diet journal: VTE risk score: VTE risk level: Rehab needs at discharge:
[2016-06-25 15:11] VITALS: BP 121/88; PULSE 86; TEMP 98
[2016-06-25 16:00] LABS: Basophils # (A) 0.1 k/uL (0-0.2); Basophils % (A) 1 %; CH 27.9; CHCM 31.7; Eosinophils # (A) 0.3 k/uL (0-0.7); Eosinophils % (A) 5 %; HCT 44.2 % (34.0-46.0); HDW 2.79; Hypochromasia Slight; Luc # (Auto) 0.13; Luc % (Auto) 2; Lymphocytes # (A) 1.6 k/uL (1.0-4.8); Lymphocytes % (A) 27 %; MCHC 31.7 g/dL (31.0-37.0); MCV 88.5 fL (80.0-100.0); Mean Platelet Volume 7.5; Monocytes # (A) 0.3 k/uL (0-1.0); Monocytes % (A) 6 %; Neutrophils # (A) 3.6 k/uL (1.3-7.7); Neutrophils % (A) 59 %; RBC 4.99 m/uL (3.80-5.40); RDW 13.8 % (11.5-15.5); WBC (Perox) 6.23
[2016-06-25 16:11] LABS: ALT 37 U/L (9-52); AST 28 U/L (14-36); Alkaline Phosphatase 76 U/L (38-126); Anion Gap 13 mmol/L; Blood Urea Nitrogen 10 mg/dL (7-17); Calcium 8.8 mg/dL (8.4-10.2); Carbon Dioxide 19 mmol/L (22-30); Chloride 107 mmol/L (98-107); Glucose 72 mg/dL (74-99); Non-African American GFR(MDRD) >60 (>60 ml/min/1.73 sqM); Potassium 4.2 mmol/L (3.5-5.1); Sodium 139 mmol/L (137-145); Total Bilirubin 0.5 mg/dL (0.2-1.3); Total Protein 6.2 g/dL (6.3-8.2)
== END | disposition home or self-care (01) ==
LOC: BARWHC3 13:13
PROVIDERS: ATTEND Surgery
DX: Z48.815 Encounter for surgical aftercare following surgery on the digestive system (principal); E66.01 Morbid (severe) obesity due to excess calories; E86.0 Dehydration; Z68.36 Body mass index [BMI] 36.0-36.9, adult; Z98.84 Bariatric surgery status
CPT/HCPCS: 80053; 85025; 96360; 96361; G0463; 99211

== ENCOUNTER → 2016-07-02 | Outpatient (CLI) | payer MEDICARE, OTHER ==
[2016-07-02 15:33] VITALS: BP 136/87; PULSE 76; TEMP 97.6; BMI 36.6
--- NOTE | 2016-07-02 16:25 | P.HPBAR ---
Bariatric H&P - History & Physicial H&P Date: 07/02/16 History & Physicial: Visit/CC: Patient initial contact: Initial weight: 91.762 kg Initial weight in pounds: 202.30 Height: 5 ft 2 in Initial BMI: 37.0 Last weight: Current weight: 90.991 kg Current weight in pounds: 200.60 Current BMI: 36.6 [place] body weight (based on NIH guidelines): 49.895 kg Excess body weight loss: 1.8% The patient is a 56 year-old F who presents for Bariatric Assessment. Patient states she feels better this week. She's had minimal GERD and dysphagia. She is actually tolerating more liquids. Past Medical History Past Medical History: Asthma, Fibromyalgia, GERD/Reflux, Musculoskeletal Disorder, Osteoarthritis (OA), Skin Disorder, Thyroid Disorder Additional Past Medical History / Comment(s): IBS, MIGRAINES, HIATAL HERNIA, GOUT, ROSACEA, HERNIATED DISCS WITH BACK PAIN - [facility] PROCEDURES, LOW THYROID, COUGH DUE TO SINUS DRAINAGE . History of Any Multi-Drug Resistant Organisms: None Reported Past Surgical History: Adenoidectomy, Appendectomy, Bariatric Surgery, Cholecystectomy, Heart Catheterization, Orthopedic Surgery, Tonsillectomy, Tubal Ligation, Uterine Ablation Additional Past Surgical History / Comment(s): tendon/ligament repair in foot, lexie knee arthroscopy, lipoma out of rt. shoulder, lap band insertion and removed, rt hand surgery,. Past Anesthesia/Blood Transfusion Reactions: Motion Sickness Past Psychological History: Anxiety, Bipolar, Depression Additional Psychological History / Comment(s): Major depressive disorder, suicide attempts x 4, Smoking Status: Never smoker Past Alcohol Use History: None Reported Past Drug Use History: None Reported - Past Family History Mother Family Medical History: Cancer Additional Family Medical History / Comment(s): Pancreatic cancer Father Family Medical History: Cancer, Deep Vein Thrombosis (DVT), Pulmonary Embolus Additional Family Medical History / Comment(s): Prostate cancer Surgical - Exam Vital Signs Temp Pulse BP 97.6 F 76 136/87 07/02/16 15:20 07/02/16 15:20 07/02/16 15:20 - General well developed, no distress - Eyes PERRL - ENT normal pinna - Neck no masses - Respiratory normal expansion - Cardiovascular Rhythm: regular - Abdomen Abdomen: soft, non tender Bariatric Assessment & Plan Plan: Status post sleeve gastrectomy. Patient's GERD symptoms improved. Her dysphagia is improved. She'll follow-up in 2 weeks for recheck. Bariatric Checklist Checklist: Plan: Checklist: EGD: 1. Hiatal hernia: 2. H. Pylori: HgbA1c: Vitamin D: Smoking: Never smoker Primary care physician referral: Tiarra PhillipsRod) Psychiatry clearance: Cardiology clearance: Sleep study: Diet journal: VTE risk score: VTE risk level: Rehab needs at discharge:
== END | disposition home or self-care (01) ==
LOC: BARWHC3 13:44
PROVIDERS: ATTEND Surgery
DX: Z48.815 Encounter for surgical aftercare following surgery on the digestive system (principal); Z71.3 Dietary counseling and surveillance; Z98.84 Bariatric surgery status; E66.01 Morbid (severe) obesity due to excess calories; Z68.36 Body mass index [BMI] 36.0-36.9, adult; K21.9 Gastro-esophageal reflux disease without esophagitis; R13.10 Dysphagia, unspecified
CPT/HCPCS: 97803; G0463; 99211

== ENCOUNTER → 2016-07-16 | Outpatient (CLI) | payer MEDICARE, OTHER ==
[2016-07-16 13:53] VITALS: TEMP 98; BMI 36.2
[2016-07-16 13:55] VITALS: BP 117/69; PULSE 83
--- NOTE | 2016-07-16 14:18 | P.HPBAR ---
Bariatric H&P - History & Physicial H&P Date: 07/16/16 History & Physicial: Visit/CC: nathalylenajeaneth Patient initial contact: Initial weight: 91.762 kg Initial weight in pounds: 202.30 Height: 5 ft 2 in Initial BMI: 37.0 Last weight: Current weight: 89.947 kg Current weight in pounds: 198.30 Current BMI: 36.2 [place] body weight (based on NIH guidelines): 49.895 kg Excess body weight loss: 4.3% The patient is a 56 year-old F who presents for Bariatric Assessment. Patient presents for sleeve gastrectomy follow-up. She is doing fairly well. Her dysphagia and GERD symptoms have improved. She had some minimal cellulitis of her umbilicus which was treated with Bactrim by her primary care doctor. The cellulitis has resolved per the patient. Past Medical History Past Medical History: Asthma, Fibromyalgia, GERD/Reflux, Musculoskeletal Disorder, Osteoarthritis (OA), Skin Disorder, Thyroid Disorder Additional Past Medical History / Comment(s): IBS, MIGRAINES, HIATAL HERNIA, GOUT, ROSACEA, HERNIATED DISCS WITH BACK PAIN - [facility] PROCEDURES, LOW THYROID, COUGH DUE TO SINUS DRAINAGE . History of Any Multi-Drug Resistant Organisms: None Reported Past Surgical History: Adenoidectomy, Appendectomy, Bariatric Surgery, Cholecystectomy, Heart Catheterization, Orthopedic Surgery, Tonsillectomy, Tubal Ligation, Uterine Ablation Additional Past Surgical History / Comment(s): tendon/ligament repair in foot, lexie knee arthroscopy, lipoma out of rt. shoulder, lap band insertion and removed, rt hand surgery,. Past Anesthesia/Blood Transfusion Reactions: Motion Sickness Past Psychological History: Anxiety, Bipolar, Depression Additional Psychological History / Comment(s): Major depressive disorder, suicide attempts x 4, Smoking Status: Never smoker Past Alcohol Use History: None Reported Past Drug Use History: None Reported - Past Family History Mother Family Medical History: Cancer Additional Family Medical History / Comment(s): Pancreatic cancer Father Family Medical History: Cancer, Deep Vein Thrombosis (DVT), Pulmonary Embolus Additional Family Medical History / Comment(s): Prostate cancer Surgical - Exam Vital Signs Temp Pulse BP 98 F 83 117/69 07/16/16 13:46 07/16/16 13:46 07/16/16 13:46 - General well developed, no distress - Eyes PERRL - ENT normal pinna - Neck no masses - Respiratory normal expansion - Cardiovascular Rhythm: regular - Abdomen Abdomen: soft, non tender Bariatric Assessment & Plan Plan: The patient is doing well status post sleeve yesterday. Her GERD and dysphagia symptoms have improved. The patient will follow-up in one month for recheck Bariatric Checklist Checklist: Plan: Checklist: EGD: 1. Hiatal hernia: 2. H. Pylori: HgbA1c: Vitamin D: Smoking: Never smoker Primary care physician referral: Tiarra PhillipsRod) Psychiatry clearance: Cardiology clearance: Sleep study: Diet journal: VTE risk score: VTE risk level: Rehab needs at discharge:
== END | disposition home or self-care (01) ==
LOC: BARWHC3 13:06
PROVIDERS: ATTEND Surgery
DX: Z48.815 Encounter for surgical aftercare following surgery on the digestive system (principal); K21.9 Gastro-esophageal reflux disease without esophagitis; R13.10 Dysphagia, unspecified; Z98.84 Bariatric surgery status; Z68.36 Body mass index [BMI] 36.0-36.9, adult
CPT/HCPCS: 99211

== ENCOUNTER → 2016-08-13 | Outpatient (CLI) | payer MEDICARE, OTHER ==
[2016-08-13 16:31] VITALS: BP 98/53; PULSE 72; TEMP 97.9; BMI 35.2
--- NOTE | 2016-08-13 16:48 | P.HPBAR ---
Bariatric H&P - History & Physicial H&P Date: 08/13/16 History & Physicial: Visit/CC: post op follow up visit Patient initial contact: Initial weight: 91.762 kg Initial weight in pounds: 202.30 Height: 5 ft 2 in Initial BMI: 37.0 Last weight: Current weight: 87.271 kg Current weight in pounds: 192.40 Current BMI: 35.2 [place] body weight (based on NIH guidelines): 49.895 kg Excess body weight loss: 10.7% The patient is a 56 year-old F who presents for Bariatric Assessment. Patient presents for bariatric follow-up. She has complaints of some drainage near her umbilicus. The patient states that last week she had some drainage above her umbilicus. It has improved. She still has some pain in the area. Past Medical History Past Medical History: Asthma, Fibromyalgia, GERD/Reflux, Musculoskeletal Disorder, Osteoarthritis (OA), Skin Disorder, Thyroid Disorder Additional Past Medical History / Comment(s): IBS, MIGRAINES, HIATAL HERNIA, GOUT, ROSACEA, HERNIATED DISCS WITH BACK PAIN - [facility] PROCEDURES, LOW THYROID, COUGH DUE TO SINUS DRAINAGE . History of Any Multi-Drug Resistant Organisms: None Reported Past Surgical History: Adenoidectomy, Appendectomy, Bariatric Surgery, Cholecystectomy, Heart Catheterization, Orthopedic Surgery, Tonsillectomy, Tubal Ligation, Uterine Ablation Additional Past Surgical History / Comment(s): tendon/ligament repair in foot, lexie knee arthroscopy, lipoma out of rt. shoulder, lap band insertion and removed, rt hand surgery,. Past Anesthesia/Blood Transfusion Reactions: Motion Sickness Past Psychological History: Anxiety, Bipolar, Depression Additional Psychological History / Comment(s): Major depressive disorder, suicide attempts x 4, Smoking Status: Never smoker Past Alcohol Use History: None Reported Past Drug Use History: None Reported - Past Family History Mother Family Medical History: Cancer Additional Family Medical History / Comment(s): Pancreatic cancer Father Family Medical History: Cancer, Deep Vein Thrombosis (DVT), Pulmonary Embolus Additional Family Medical History / Comment(s): Prostate cancer Surgical - Exam Vital Signs Temp Pulse BP 97.9 F 72 98/53 08/13/16 16:26 08/13/16 16:26 08/13/16 16:26 - General well developed, no distress - Eyes PERRL - ENT normal pinna - Neck no masses - Respiratory normal expansion - Cardiovascular Rhythm: regular - Abdomen Mild induration approximately 5 cm above the umbilicus. The patient's previous incision site is clean dry tach. Abdomen: soft, non tender Bariatric Assessment & Plan Plan: Simultaneous abscess. Perform incision and drainage in the office. There is no significant purulent drainage. The patient's placed on Bactrim DS 1 tablet by mouth twice a day. She'll follow up in one week. Bariatric Checklist Checklist: Plan: Checklist: EGD: 1. Hiatal hernia: 2. H. Pylori: HgbA1c: Vitamin D: Smoking: Never smoker Primary care physician referral: Tiarra PhillipsRod) Psychiatry clearance: Cardiology clearance: Sleep study: Diet journal: VTE risk score: VTE risk level: Rehab needs at discharge:
== END | disposition home or self-care (01) ==
LOC: BARWHC3 14:39
PROVIDERS: ATTEND Surgery
DX: Z48.815 Encounter for surgical aftercare following surgery on the digestive system (principal); Z98.84 Bariatric surgery status; Z79.899 Other long term (current) drug therapy
CPT/HCPCS: 99211

== ENCOUNTER → 2016-08-20 | Outpatient (CLI) | payer MEDICARE, OTHER ==
[2016-08-20 13:21] VITALS: BP 113/73; PULSE 79; RESP 16; TEMP 98.1; BMI 34.6
[2016-08-20 14:51] LABS: ALT 32 U/L (9-52); AST 26 U/L (14-36); Alkaline Phosphatase 82 U/L (38-126); Anion Gap 10 mmol/L; Blood Urea Nitrogen 12 mg/dL (7-17); Calcium 9.4 mg/dL (8.4-10.2); Carbon Dioxide 25 mmol/L (22-30); Chloride 104 mmol/L (98-107); Glucose 91 mg/dL (74-99); Non-African American GFR(MDRD) >60 (>60 ml/min/1.73 sqM); Potassium 4.2 mmol/L (3.5-5.1); Sodium 139 mmol/L (137-145); Total Bilirubin 0.5 mg/dL (0.2-1.3); Total Protein 6.9 g/dL (6.3-8.2)
[2016-08-20 14:57] LABS: CH 27.5; CHCM 31.9; HCT 42.1 % (34.0-46.0); HDW 2.71; HGB 13.3 gm/dL (11.4-16.0); MCH 27.4 pg (25.0-35.0); MCHC 31.6 g/dL (31.0-37.0); MCV 86.7 fL (80.0-100.0); Mean Platelet Volume 7.4; RBC 4.86 m/uL (3.80-5.40); RDW 14.4 % (11.5-15.5); WBC 6.3 k/uL (3.8-10.6)
--- NOTE | 2016-08-20 15:55 | P.HPBAR ---
Bariatric H&P - History & Physicial H&P Date: 08/20/16 History & Physicial: Visit/CC: Sleeve follow-up Patient initial contact: Initial weight: 91.762 kg Initial weight in pounds: 202.30 Height: 5 ft 2 in Initial BMI: 37.0 Last weight: Current weight: 85.956 kg Current weight in pounds: 189.00 Current BMI: 34.6 [place] body weight (based on NIH guidelines): 49.895 kg Excess body weight loss: 14.4% The patient is a 56 year-old F who presents for Bariatric Assessment. The patient presents for sleeve gastrectomy follow-up. She's had good weight loss. She's had some Augmentin GERD and arthritis. Her umbilical pain has resolved. Past Medical History Past Medical History: Asthma, Fibromyalgia, GERD/Reflux, Musculoskeletal Disorder, Osteoarthritis (OA), Skin Disorder, Thyroid Disorder Additional Past Medical History / Comment(s): IBS, MIGRAINES, HIATAL HERNIA, GOUT, ROSACEA, HERNIATED DISCS WITH BACK PAIN - [facility] PROCEDURES, LOW THYROID, COUGH DUE TO SINUS DRAINAGE . History of Any Multi-Drug Resistant Organisms: None Reported Past Surgical History: Adenoidectomy, Appendectomy, Bariatric Surgery, Cholecystectomy, Heart Catheterization, Orthopedic Surgery, Tonsillectomy, Tubal Ligation, Uterine Ablation Additional Past Surgical History / Comment(s): tendon/ligament repair in foot, lexie knee arthroscopy, lipoma out of rt. shoulder, lap band insertion and removed, rt hand surgery,. Past Anesthesia/Blood Transfusion Reactions: Motion Sickness Past Psychological History: Anxiety, Bipolar, Depression Additional Psychological History / Comment(s): Major depressive disorder, suicide attempts x 4, Smoking Status: Never smoker Past Alcohol Use History: None Reported Past Drug Use History: None Reported - Past Family History Mother Family Medical History: Cancer Additional Family Medical History / Comment(s): Pancreatic cancer Father Family Medical History: Cancer, Deep Vein Thrombosis (DVT), Pulmonary Embolus Additional Family Medical History / Comment(s): Prostate cancer Surgical - Exam Vital Signs Temp Pulse Resp BP 98.1 F 79 16 113/73 08/20/16 13:19 08/20/16 13:19 08/20/16 13:19 08/20/16 13:19 - General well developed, no distress - Eyes PERRL - ENT normal pinna - Neck no masses - Respiratory normal expansion - Cardiovascular Rhythm: regular - Abdomen Abdomen: soft, non tender Results - Labs 08/20/16 14:12 08/20/16 14:12 Diabetes panel 08/20/16 Range/Units 14:12 Sodium 139 (137-145) mmol/L Potassium 4.2 (3.5-5.1) mmol/L Chloride 104 (98-107) mmol/L Carbon Dioxide 25 (22-30) mmol/L BUN 12 (7-17) mg/dL Creatinine 0.73 (0.52-1.04) mg/dL Glucose 91 (74-99) mg/dL Calcium 9.4 (8.4-10.2) mg/dL AST 26 (14-36) U/L ALT 32 (9-52) U/L Alkaline Phosphatase 82 (38-126) U/L Total Protein 6.9 (6.3-8.2) g/dL Albumin 4.0 (3.5-5.0) g/dL Calcium panel 08/20/16 Range/Units 14:12 Calcium 9.4 (8.4-10.2) mg/dL Albumin 4.0 (3.5-5.0) g/dL Pituitary panel 08/20/16 Range/Units 14:12 Sodium 139 (137-145) mmol/L Potassium 4.2 (3.5-5.1) mmol/L Chloride 104 (98-107) mmol/L Carbon Dioxide 25 (22-30) mmol/L BUN 12 (7-17) mg/dL Creatinine 0.73 (0.52-1.04) mg/dL Glucose 91 (74-99) mg/dL Calcium 9.4 (8.4-10.2) mg/dL Adrenal panel 08/20/16 Range/Units 14:12 Sodium 139 (137-145) mmol/L Potassium 4.2 (3.5-5.1) mmol/L Chloride 104 (98-107) mmol/L Carbon Dioxide 25 (22-30) mmol/L BUN 12 (7-17) mg/dL Creatinine 0.73 (0.52-1.04) mg/dL Glucose 91 (74-99) mg/dL Calcium 9.4 (8.4-10.2) mg/dL Total Bilirubin 0.5 (0.2-1.3) mg/dL AST 26 (14-36) U/L ALT 32 (9-52) U/L Alkaline Phosphatase 82 (38-126) U/L Total Protein 6.9 (6.3-8.2) g/dL Albumin 4.0 (3.5-5.0) g/dL Bariatric Assessment & Plan Plan: Status post sleeve yesterday. Patient is doing quite well with her weight loss. The patient will continue omeprazole for treatment of her GERD symptoms. Her back pain arthritis is remain stable. Bariatric Checklist Checklist: Plan: Checklist: EGD: 1. Hiatal hernia: 2. H. Pylori: HgbA1c: Vitamin D: Smoking: Never smoker Primary care physician referral: Tiarra Dodge) Psychiatry clearance: Cardiology clearance: Sleep study: Diet journal: VTE risk score: VTE risk level: Rehab needs at discharge:
[2016-08-20 16:03] LABS: Vitamin B12 758 pg/mL (239-931)
== END ==
LOC: BARWHC3 13:04
PROVIDERS: ATTEND Surgery
DX: Z48.815 Encounter for surgical aftercare following surgery on the digestive system (principal); Z98.84 Bariatric surgery status; E66.01 Morbid (severe) obesity due to excess calories; K21.9 Gastro-esophageal reflux disease without esophagitis; M19.90 Unspecified osteoarthritis, unspecified site
CPT/HCPCS: 84425; 80053; 82607; 85027; 82306; 97803; G0463; 99211

== ENCOUNTER → 2016-09-24 | Outpatient (CLI) | payer MEDICARE, OTHER ==
[2016-09-24 14:01] VITALS: BP 118/56; PULSE 71; TEMP 97.8; BMI 32.7
--- NOTE | 2016-09-24 15:58 | P.HPBAR ---
Bariatric H&P - History & Physicial H&P Date: 09/24/16 History & Physicial: Visit/CC: follow up visit Patient initial contact: Initial weight: 91.762 kg Initial weight in pounds: 202.30 Height: 5 ft 2 in Initial BMI: 37.0 Last weight: Current weight: 81.193 kg Current weight in pounds: 179.00 Current BMI: 32.7 [place] body weight (based on NIH guidelines): 49.895 kg Excess body weight loss: 25.2% The patient is a 56 year-old F who presents for Bariatric Assessment. Patient sleeve gastrectomy follow-up. She lost 10 pounds since her last visit. She's had some minimal GERD symptoms. She denies any dysphagia. Past Medical History Past Medical History: Asthma, Fibromyalgia, GERD/Reflux, Musculoskeletal Disorder, Osteoarthritis (OA), Skin Disorder, Thyroid Disorder Additional Past Medical History / Comment(s): IBS, MIGRAINES, HIATAL HERNIA, GOUT, ROSACEA, HERNIATED DISCS WITH BACK PAIN - [facility] PROCEDURES, LOW THYROID, COUGH DUE TO SINUS DRAINAGE . History of Any Multi-Drug Resistant Organisms: None Reported Past Surgical History: Adenoidectomy, Appendectomy, Bariatric Surgery, Cholecystectomy, Heart Catheterization, Orthopedic Surgery, Tonsillectomy, Tubal Ligation, Uterine Ablation Additional Past Surgical History / Comment(s): tendon/ligament repair in foot, lexie knee arthroscopy, lipoma out of rt. shoulder, lap band insertion and removed, rt hand surgery,. Past Anesthesia/Blood Transfusion Reactions: Motion Sickness Past Psychological History: Anxiety, Bipolar, Depression Additional Psychological History / Comment(s): Major depressive disorder, suicide attempts x 4, Smoking Status: Never smoker Past Alcohol Use History: None Reported Past Drug Use History: None Reported - Past Family History Mother Family Medical History: Cancer Additional Family Medical History / Comment(s): Pancreatic cancer Father Family Medical History: Cancer, Deep Vein Thrombosis (DVT), Pulmonary Embolus Additional Family Medical History / Comment(s): Prostate cancer Surgical - Exam Vital Signs Temp Pulse BP 97.8 F 71 118/56 09/24/16 13:57 09/24/16 13:57 09/24/16 13:57 - General well developed, no distress - Eyes PERRL - ENT normal pinna - Neck no masses - Respiratory normal expansion - Cardiovascular Rhythm: regular - Abdomen Abdomen: soft, non tender Bariatric Assessment & Plan Plan: Status post sleeve gastrectomy. Patient did well. Her abdomen is soft. Her GERD symptoms are minimal. She'll follow-up in 4 weeks. Bariatric Checklist Checklist: Plan: Checklist: EGD: 1. Hiatal hernia: 2. H. Pylori: HgbA1c: Vitamin D: Smoking: Never smoker Primary care physician referral: Tiarra PhillipsRod) Psychiatry clearance: Cardiology clearance: Sleep study: Diet journal: VTE risk score: VTE risk level: Rehab needs at discharge:
== END | disposition home or self-care (01) ==
LOC: BARWHC3 13:18
PROVIDERS: ATTEND Surgery
DX: Z09 Encounter for follow-up examination after completed treatment for conditions other than malignant neoplasm (principal); M79.7 Fibromyalgia; J45.909 Unspecified asthma, uncomplicated; M19.90 Unspecified osteoarthritis, unspecified site; F41.9 Anxiety disorder, unspecified; F32.9 Major depressive disorder, single episode, unspecified; Z98.84 Bariatric surgery status
CPT/HCPCS: 99211

== ENCOUNTER → 2016-10-29 | Outpatient (CLI) | payer MEDICARE, OTHER ==
[2016-10-29 13:00] VITALS: BP 115/73; PULSE 67; RESP 16; TEMP 97.8; BMI 31.6
--- NOTE | 2016-10-29 16:37 | P.HPBAR ---
Bariatric H&P - History & Physicial H&P Date: 10/29/16 History & Physicial: Visit/CC: sleeve follow-up Patient initial contact: Initial weight: 91.762 kg Initial weight in pounds: 202.30 Height: 5 ft 2 in Initial BMI: 37.0 Last weight: 179 Current weight: 78.585 kg Current weight in pounds: 173.00 Current BMI: 31.6 [place] body weight (based on NIH guidelines): 49.895 kg Excess body weight loss: 31.7% The patient is a 56 year-old F who presents for Bariatric Assessment. Patient presents today for sleeve gastric follow-up. She is doing quite well. She has had minimal complaints of GERD. Her to arthritis has improved. She still has chronic back pain. Past Medical History Past Medical History: Asthma, Fibromyalgia, GERD/Reflux, Musculoskeletal Disorder, Osteoarthritis (OA), Skin Disorder, Thyroid Disorder Additional Past Medical History / Comment(s): IBS, MIGRAINES, HIATAL HERNIA, GOUT, ROSACEA, HERNIATED DISCS WITH BACK PAIN - [facility] PROCEDURES, LOW THYROID, COUGH DUE TO SINUS DRAINAGE . History of Any Multi-Drug Resistant Organisms: None Reported Past Surgical History: Adenoidectomy, Appendectomy, Bariatric Surgery, Cholecystectomy, Heart Catheterization, Orthopedic Surgery, Tonsillectomy, Tubal Ligation, Uterine Ablation Additional Past Surgical History / Comment(s): tendon/ligament repair in foot, lexie knee arthroscopy, lipoma out of rt. shoulder, lap band insertion and removed, rt hand surgery,. Past Anesthesia/Blood Transfusion Reactions: Motion Sickness Smoking Status: Never smoker - Past Family History Mother Family Medical History: Cancer Additional Family Medical History / Comment(s): Pancreatic cancer Father Family Medical History: Cancer, Deep Vein Thrombosis (DVT), Pulmonary Embolus Additional Family Medical History / Comment(s): Prostate cancer Surgical - Exam Vital Signs Temp Pulse Resp BP 97.8 F 67 16 115/73 10/29/16 12:57 10/29/16 12:57 10/29/16 12:57 10/29/16 12:57 - General well developed - Abdomen Abdomen: soft, non tender Bariatric Assessment & Plan Plan: Status post sleeve yesterday. Patient's last additional 40 pounds. She will follow-up in one month recheck. Her GERD symptoms will be observed. Bariatric Checklist Checklist: Plan: Checklist: EGD: 1. Hiatal hernia: 2. H. Pylori: HgbA1c: Vitamin D: Smoking: Never smoker Primary care physician referral: Tiarra Colin ([place]) Psychiatry clearance: Cardiology clearance: Sleep study: Diet journal: VTE risk score: VTE risk level: Rehab needs at discharge:
== END | disposition home or self-care (01) ==
LOC: BARWHC3 12:43
PROVIDERS: ATTEND Surgery
DX: Z48.815 Encounter for surgical aftercare following surgery on the digestive system (principal); Z98.84 Bariatric surgery status; K21.9 Gastro-esophageal reflux disease without esophagitis; Z68.31 Body mass index [BMI] 31.0-31.9, adult
CPT/HCPCS: 99211

== ENCOUNTER → 2016-12-17 | Outpatient (CLI) | payer MEDICARE, OTHER ==
[2016-12-17 14:31] VITALS: BP 121/69; PULSE 79; RESP 16; TEMP 98.4; BMI 29.4
--- NOTE | 2016-12-17 14:50 | P.HPBAR ---
Bariatric H&P - History & Physicial H&P Date: 12/17/16 History & Physicial: Visit/CC: [facility] Patient initial contact: Initial weight: 91.762 kg Initial weight in pounds: 202.30 Height: 5 ft 2 in Initial BMI: 37.0 Last weight: 173 Current weight: 73.028 kg Current weight in pounds: 161.00 Current BMI: 29.4 [place] body weight (based on NIH guidelines): 49.895 kg Excess body weight loss: 44.7% The patient is a 56 year-old F who presents for Bariatric Assessment. Patient presents today for seed gastric a fall. She underwent radical hysterectomy 2 weeks ago. She lost approximately 12 pounds since her last visit. She's had some minimal GERD. Past Medical History Past Medical History: Asthma, Fibromyalgia, GERD/Reflux, Musculoskeletal Disorder, Osteoarthritis (OA), Skin Disorder, Thyroid Disorder Additional Past Medical History / Comment(s): IBS, MIGRAINES, HIATAL HERNIA, GOUT, ROSACEA, HERNIATED DISCS WITH BACK PAIN - [facility] PROCEDURES, LOW THYROID, COUGH DUE TO SINUS DRAINAGE . History of Any Multi-Drug Resistant Organisms: None Reported Past Surgical History: Adenoidectomy, Appendectomy, Bariatric Surgery, Cholecystectomy, Heart Catheterization, Orthopedic Surgery, Tonsillectomy, Tubal Ligation, Uterine Ablation Additional Past Surgical History / Comment(s): tendon/ligament repair in foot, lexie knee arthroscopy, lipoma out of rt. shoulder, lap band insertion and removed, rt hand surgery,. Past Anesthesia/Blood Transfusion Reactions: Motion Sickness Smoking Status: Never smoker - Past Family History Mother Family Medical History: Cancer Additional Family Medical History / Comment(s): Pancreatic cancer Father Family Medical History: Cancer, Deep Vein Thrombosis (DVT), Pulmonary Embolus Additional Family Medical History / Comment(s): Prostate cancer Surgical - Exam Vital Signs Temp Pulse Resp BP 98.4 F 79 16 121/69 12/17/16 14:27 12/17/16 14:27 12/17/16 14:27 12/17/16 14:27 - General well developed, well nourished, no distress - Eyes PERRL - Abdomen Abdomen: soft, non tender Bariatric Assessment & Plan Plan: Status post sleeve yesterday. Patient's GERD symptoms are minimal and will be observed. She'll follow-up in 2 months. Bariatric Checklist Checklist: Plan: Checklist: EGD: 1. Hiatal hernia: 2. H. Pylori: HgbA1c: Vitamin D: Smoking: Never smoker Primary care physician referral: Tiarra PhillipsRod) Psychiatry clearance: Cardiology clearance: Sleep study: Diet journal: VTE risk score: VTE risk level: Rehab needs at discharge:
== END | disposition home or self-care (01) ==
LOC: BARWHC3 13:38
PROVIDERS: ATTEND Surgery
DX: Z09 Encounter for follow-up examination after completed treatment for conditions other than malignant neoplasm (principal); K21.9 Gastro-esophageal reflux disease without esophagitis; M79.7 Fibromyalgia; Z98.84 Bariatric surgery status
CPT/HCPCS: 97803; G0463; 99211

== ENCOUNTER → 2017-06-03 | Outpatient (CLI) | payer MEDICARE, OTHER ==
[2017-06-03 13:36] VITALS: BMI 26.5
[2017-06-03 14:24] VITALS: BP 120/82; PULSE 64; RESP 16; TEMP 98.1
[2017-06-03 14:34] LABS: ALT 25 U/L (9-52); AST 15 U/L (14-36); Alkaline Phosphatase 103 U/L (38-126); Anion Gap 10 mmol/L; Blood Urea Nitrogen 17 mg/dL (7-17); Calcium 9.5 mg/dL (8.4-10.2); Carbon Dioxide 27 mmol/L (22-30); Chloride 103 mmol/L (98-107); Glucose 100 mg/dL (74-99); Potassium 4.1 mmol/L (3.5-5.1); Sodium 140 mmol/L (137-145); Total Bilirubin 0.3 mg/dL (0.2-1.3); Total Protein 6.6 g/dL (6.3-8.2)
[2017-06-03 14:53] LABS: HCT 43.5 % (34.0-46.0); HGB 13.2 gm/dL (11.4-16.0); Hypochromasia Slight; MCH 25.8 pg (25.0-35.0); MCHC 30.4 g/dL (31.0-37.0); MCV 84.9 fL (80.0-100.0); Mean Platelet Volume 6.8; Platelet Count 205 k/uL (150-450); RBC 5.13 m/uL (3.80-5.40); RDW 14.5 % (11.5-15.5); WBC 7.7 k/uL (3.8-10.6)
--- NOTE | 2017-06-03 16:36 | P.HPBAR ---
Bariatric H&P - History & Physicial H&P Date: 06/03/17 History & Physicial: Visit/CC: sleeve follow-up Patient initial contact: Initial weight: 91.762 kg Initial weight in pounds: 202.30 Height: 5 ft 2 in Initial BMI: 37.0 Last weight: Current weight: 65.771 kg Current weight in pounds: 145.00 Current BMI: 26.5 [place] body weight (based on NIH guidelines): 49.895 kg Excess body weight loss: 62.0% The patient is a 57 year-old F who presents for Bariatric Assessment. The patient presents today for sleeve gastric fall. She also 12 pounds since her last visit. She has some minimal GERD. Past Medical History Past Medical History: Asthma, Fibromyalgia, GERD/Reflux, Musculoskeletal Disorder, Osteoarthritis (OA), Skin Disorder, Thyroid Disorder Additional Past Medical History / Comment(s): IBS, MIGRAINES, HIATAL HERNIA, GOUT, ROSACEA, HERNIATED DISCS WITH BACK PAIN - [facility] PROCEDURES, LOW THYROID, COUGH DUE TO SINUS DRAINAGE . History of Any Multi-Drug Resistant Organisms: None Reported Past Surgical History: Adenoidectomy, Appendectomy, Bariatric Surgery, Cholecystectomy, Heart Catheterization, Orthopedic Surgery, Tonsillectomy, Tubal Ligation, Uterine Ablation Additional Past Surgical History / Comment(s): tendon/ligament repair in foot, lexie knee arthroscopy, lipoma out of rt. shoulder, lap band insertion and removed, rt hand surgery,. Past Anesthesia/Blood Transfusion Reactions: Motion Sickness Smoking Status: Never smoker - Past Family History Mother Family Medical History: Cancer Additional Family Medical History / Comment(s): Pancreatic cancer Father Family Medical History: Cancer, Deep Vein Thrombosis (DVT), Pulmonary Embolus Additional Family Medical History / Comment(s): Prostate cancer Surgical - Exam Vital Signs Temp Pulse Resp BP 98.1 F 64 16 120/82 06/03/17 14:22 06/03/17 14:22 06/03/17 14:22 06/03/17 14:22 - General well developed, well nourished, no distress - Eyes PERRL - ENT normal pinna - Cardiovascular Rhythm: regular - Abdomen Abdomen: soft, non tender Results - Labs 06/03/17 13:57 06/03/17 13:57 Abnormal Lab Results - Last 24 Hours (Table) 06/03/17 06/03/17 Range/Units 13:57 13:57 MCHC 30.4 L (31.0-37.0) g/dL Glucose 100 H (74-99) mg/dL Diabetes panel 06/03/17 Range/Units 13:57 Sodium 140 (137-145) mmol/L Potassium 4.1 (3.5-5.1) mmol/L Chloride 103 (98-107) mmol/L Carbon Dioxide 27 (22-30) mmol/L BUN 17 (7-17) mg/dL Creatinine 0.88 (0.52-1.04) mg/dL Glucose 100 H (74-99) mg/dL Calcium 9.5 (8.4-10.2) mg/dL AST 15 (14-36) U/L ALT 25 (9-52) U/L Alkaline Phosphatase 103 (38-126) U/L Total Protein 6.6 (6.3-8.2) g/dL Albumin 4.0 (3.5-5.0) g/dL Thyroid panel 06/03/17 Range/Units 13:57 TSH 0.983 (0.465-4.680) mIU/L Calcium panel 06/03/17 Range/Units 13:57 Calcium 9.5 (8.4-10.2) mg/dL Albumin 4.0 (3.5-5.0) g/dL Pituitary panel 06/03/17 Range/Units 13:57 Sodium 140 (137-145) mmol/L Potassium 4.1 (3.5-5.1) mmol/L Chloride 103 (98-107) mmol/L Carbon Dioxide 27 (22-30) mmol/L BUN 17 (7-17) mg/dL Creatinine 0.88 (0.52-1.04) mg/dL Glucose 100 H (74-99) mg/dL Calcium 9.5 (8.4-10.2) mg/dL TSH 0.983 (0.465-4.680) mIU/L Adrenal panel 06/03/17 Range/Units 13:57 Sodium 140 (137-145) mmol/L Potassium 4.1 (3.5-5.1) mmol/L Chloride 103 (98-107) mmol/L Carbon Dioxide 27 (22-30) mmol/L BUN 17 (7-17) mg/dL Creatinine 0.88 (0.52-1.04) mg/dL Glucose 100 H (74-99) mg/dL Calcium 9.5 (8.4-10.2) mg/dL Total Bilirubin 0.3 (0.2-1.3) mg/dL AST 15 (14-36) U/L ALT 25 (9-52) U/L Alkaline Phosphatase 103 (38-126) U/L Total Protein 6.6 (6.3-8.2) g/dL Albumin 4.0 (3.5-5.0) g/dL Bariatric Assessment & Plan Plan: Status post sleeve gastric and. Patient's had excellent weight loss. She has minimal GERD which will be observed. She'll follow-up in 12 weeks. Bariatric Checklist Checklist: Plan: Checklist: EGD: 1. Hiatal hernia: 2. H. Pylori: HgbA1c: Vitamin D: Smoking: Never smoker Primary care physician referral: Tiarra Colin ([place]) Psychiatry clearance: Cardiology clearance: Sleep study: Diet journal: VTE risk score: VTE risk level: Rehab needs at discharge:
[2017-06-03 19:16] LABS: Vitamin D 25 Hydroxy 27.7 ng/mL (30.0-100.0)
[2017-06-03 21:31] LABS: Hemoglobin A1C 5.2 % (4.0-6.0)
== END | disposition home or self-care (01) ==
LOC: BARWHC3 12:44
PROVIDERS: ATTEND Surgery
DX: Z48.815 Encounter for surgical aftercare following surgery on the digestive system (principal); E66.01 Morbid (severe) obesity due to excess calories; D50.8 Other iron deficiency anemias; E44.0 Moderate protein-calorie malnutrition; E55.9 Vitamin D deficiency, unspecified; Z68.26 Body mass index [BMI] 26.0-26.9, adult; Z98.84 Bariatric surgery status
CPT/HCPCS: 84425; 80053; 82607; 82728; 83540; 83550; 84443; 85027; 82306; 83036; 97803; G0463; 99211

== ENCOUNTER → 2017-10-28 | Outpatient (CLI) | payer MEDICARE, OTHER ==
[2017-10-28 13:38] VITALS: BP 104/65; PULSE 71; TEMP 98.2; BMI 27.1
[2017-10-28 14:08] LABS: HCT 40.5 % (34.0-46.0); HGB 13.2 gm/dL (11.4-16.0); MCH 27.4 pg (25.0-35.0); MCHC 32.6 g/dL (31.0-37.0); MCV 84.1 fL (80.0-100.0); Mean Platelet Volume 6.8; Platelet Count 188 k/uL (150-450); RBC 4.82 m/uL (3.80-5.40); RDW 13.8 % (11.5-15.5)
[2017-10-28 14:22] LABS: ALT 27 U/L (9-52); AST 17 U/L (14-36); Albumin 3.9 g/dL (3.5-5.0); Alkaline Phosphatase 79 U/L (38-126); Anion Gap 10 mmol/L; Blood Urea Nitrogen 13 mg/dL (7-17); Calcium 9.5 mg/dL (8.4-10.2); Carbon Dioxide 28 mmol/L (22-30); Chloride 102 mmol/L (98-107); Glucose 89 mg/dL (74-99); Potassium 4.6 mmol/L (3.5-5.1); Sodium 140 mmol/L (137-145); Total Bilirubin 0.3 mg/dL (0.2-1.3); Total Protein 6.3 g/dL (6.3-8.2)
--- NOTE | 2017-10-28 15:22 | P.HPBAR ---
Bariatric H&P - History & Physicial H&P Date: 10/28/17 History & Physicial: Visit/CC: postop follow up Patient initial contact: Initial weight: 91.762 kg Initial weight in pounds: 202.30 Height: 5 ft 2 in Initial BMI: 37.0 Last weight: Current weight: 67.449 kg Current weight in pounds: 148.70 Current BMI: 27.1 [place] body weight (based on NIH guidelines): 49.895 kg Excess body weight loss: 58.0% The patient is a 57 year-old F who presents for Bariatric Assessment. Patient presents today for sleeve gastrectomy fall. She is maintaining her weight. She 's had some mild GERD. Past Medical History Past Medical History: Asthma, Fibromyalgia, GERD/Reflux, Musculoskeletal Disorder, Osteoarthritis (OA), Skin Disorder, Thyroid Disorder Additional Past Medical History / Comment(s): IBS, MIGRAINES, HIATAL HERNIA, GOUT, ROSACEA, HERNIATED DISCS WITH BACK PAIN - [facility] PROCEDURES, LOW THYROID, COUGH DUE TO SINUS DRAINAGE . History of Any Multi-Drug Resistant Organisms: None Reported Past Surgical History: Adenoidectomy, Appendectomy, Bariatric Surgery, Cholecystectomy, Heart Catheterization, Orthopedic Surgery, Tonsillectomy, Tubal Ligation, Uterine Ablation Additional Past Surgical History / Comment(s): tendon/ligament repair in foot, lexie knee arthroscopy, lipoma out of rt. shoulder, lap band insertion and removed, rt hand surgery,. Past Anesthesia/Blood Transfusion Reactions: Motion Sickness Past Psychological History: Anxiety, Bipolar, Depression Additional Psychological History / Comment(s): Major depressive disorder, suicide attempts x 4, Smoking Status: Never smoker Past Alcohol Use History: None Reported Past Drug Use History: None Reported - Past Family History Mother Family Medical History: Cancer Additional Family Medical History / Comment(s): Pancreatic cancer Father Family Medical History: Cancer, Deep Vein Thrombosis (DVT), Pulmonary Embolus Additional Family Medical History / Comment(s): Prostate cancer Surgical - Exam Vital Signs Temp Pulse BP 98.2 F 71 104/65 10/28/17 13:36 10/28/17 13:36 10/28/17 13:36 - General well developed, no distress - Eyes PERRL - ENT normal nares - Neck no masses - Respiratory normal expansion - Cardiovascular Rhythm: regular - Abdomen Abdomen: soft, non tender Results - Labs 10/28/17 13:41 10/28/17 13:41 Diabetes panel 10/28/17 Range/Units 13:41 Sodium 140 (137-145) mmol/L Potassium 4.6 (3.5-5.1) mmol/L Chloride 102 (98-107) mmol/L Carbon Dioxide 28 (22-30) mmol/L BUN 13 (7-17) mg/dL Creatinine 0.81 (0.52-1.04) mg/dL Glucose 89 (74-99) mg/dL Calcium 9.5 (8.4-10.2) mg/dL AST 17 (14-36) U/L ALT 27 (9-52) U/L Alkaline Phosphatase 79 (38-126) U/L Total Protein 6.3 (6.3-8.2) g/dL Albumin 3.9 (3.5-5.0) g/dL Thyroid panel 10/28/17 Range/Units 13:41 TSH 1.030 (0.465-4.680) mIU/L Calcium panel 10/28/17 Range/Units 13:41 Calcium 9.5 (8.4-10.2) mg/dL Albumin 3.9 (3.5-5.0) g/dL Pituitary panel 10/28/17 Range/Units 13:41 Sodium 140 (137-145) mmol/L Potassium 4.6 (3.5-5.1) mmol/L Chloride 102 (98-107) mmol/L Carbon Dioxide 28 (22-30) mmol/L BUN 13 (7-17) mg/dL Creatinine 0.81 (0.52-1.04) mg/dL Glucose 89 (74-99) mg/dL Calcium 9.5 (8.4-10.2) mg/dL TSH 1.030 (0.465-4.680) mIU/L Adrenal panel 10/28/17 Range/Units 13:41 Sodium 140 (137-145) mmol/L Potassium 4.6 (3.5-5.1) mmol/L Chloride 102 (98-107) mmol/L Carbon Dioxide 28 (22-30) mmol/L BUN 13 (7-17) mg/dL Creatinine 0.81 (0.52-1.04) mg/dL Glucose 89 (74-99) mg/dL Calcium 9.5 (8.4-10.2) mg/dL Total Bilirubin 0.3 (0.2-1.3) mg/dL AST 17 (14-36) U/L ALT 27 (9-52) U/L Alkaline Phosphatase 79 (38-126) U/L Total Protein 6.3 (6.3-8.2) g/dL Albumin 3.9 (3.5-5.0) g/dL Bariatric Assessment & Plan Plan: Status post sleeve gastrectomy. Patient's GERD is minimal we observed. She'll follow-up in 6 months. Bariatric Checklist Checklist: Plan: Checklist: EGD: 1. Hiatal hernia: 2. H. Pylori: HgbA1c: Vitamin D: Smoking: Never smoker Primary care physician referral: Tiarra Dodge) Psychiatry clearance: Cardiology clearance: Sleep study: Diet journal: VTE risk score: VTE risk level: Rehab needs at discharge:
[2017-10-28 19:56] LABS: Folate, Serum 3.6 ng/mL
== END | disposition home or self-care (01) ==
LOC: BARWHC3 12:34
PROVIDERS: ATTEND Surgery
DX: Z48.815 Encounter for surgical aftercare following surgery on the digestive system (principal); Z98.84 Bariatric surgery status; E44.0 Moderate protein-calorie malnutrition; E55.9 Vitamin D deficiency, unspecified
CPT/HCPCS: 84134; 80053; 82746; 84443; 85027; 82306; G0463; 99211